=== PATIENT | male | born 1960 | race Caucasian/White ===

== ENCOUNTER 2017-02-07 16:58 | Emergency (ER) | payer OTHER ==
--- NOTE | 2017-02-07 17:17 | PDOC ---
History of Present Illness - General History Source: Patient Exam Limitations: No Limitations - History of Present Illness Initial Comments: 02/07/17 18:36 Patient is a 56 year old male with a significant past medical history of Diabetes, HTN, CHF, Hx chronic heart attacks who was brought by EMS to the ED with complaints of chest pain en route to ED. Patient reports sudden onset of bilateral leg burning that [facility] [employer] [facility] Patient does not rate bilateral leg pain but states he was unable to walk or stand without falling backwards. Patient states experiencing sudden SOB while waiting for EMS at [facility] secondary to bilateral leg pain. Patient reports experiencing chest pain while en route to the ED secondary to bilateral leg pain. He states chest pain is a sharp pressing pain that feels similar to past experiences while having heart attack. He reports going to [facility] 2 weeks ago to change medication from lasix to turismo. Patient reports having fluid build up around knees bilaterally. PAtient reports taking liquid nitro en route to ED which offered slight relief. Denies arm pain, sweating. Denies loss of consciousness, hitting of head. Denies dizziness, headache, lightheadedness. Denies any other symptoms. Allergies: All cough drops. Sulfa Social history: No smoking. Social drinker. No illicit drugs. Surgical history: Open heart surgery, stents x4, Gallbladder PMD: Dr. Pringle [facility] Cardiologists Dr. Kira Armijo Kidney Doctor - Dr. Blum [facility] office Number : [phone] <Anders Linn - Last Filed: 02/07/17 18:36> <Ada Thomas - Last Filed: 02/08/17 00:42> <Rogelio Almaraz - Last Filed: 02/08/17 07:26> - General Chief Complaint: Chest Pain Stated Complaint: CHEST PAIN/DIZZINESS Time Seen by Provider: 02/07/17 17:15 Past History <Anders Linn - Last Filed: 02/07/17 18:36> <Ada Thomas - Last Filed: 02/08/17 00:42> <Rogelio Almaraz - Last Filed: 02/08/17 07:26> - Past Medical History Allergies/Adverse Reactions: Allergies Allergy/AdvReac Type Severity Reaction Status Date / Time brompheniramine Allergy Verified 02/07/17 17:27 [From Tussi Pres-B] brompheniramine maleate Allergy Verified 02/07/17 17:27 [From Tussi Pres-B] chlorpheniramine polistirex Allergy Verified 02/07/17 17:27 [From Tussionex] dextromethorphan Hbr Allergy Verified 02/07/17 17:27 [From Tussi Pres-B] guaifenesin Allergy Verified 02/07/17 17:27 [From Tussi Pres-B] homatropine methylbromide Allergy Verified 02/07/17 17:27 [From Tussigon] hydrocodone bitartrate Allergy Verified 02/07/17 17:27 [From Tussigon] hydrocodone polistirex Allergy Verified 02/07/17 17:27 [From Tussionex] phenylephrine HCl Allergy Verified 02/07/17 17:27 [From Tussi Pres-B] Sulfa (Sulfonamide Allergy Verified 02/07/17 17:27 Antibiotics) sulfacetamide sodium Allergy Verified 02/07/17 17:27 [From Sulfamide] zolpidem tartrate Allergy Verified 02/07/17 17:27 [From Ambien] Home Medications: Ambulatory Orders Unobtainable [Unobtainable] 02/08/17 Review of Systems - Review of Systems Able to Perform ROS?: Yes Comments:: 02/07/17 18:38 GENERAL/CONSTITUTIONAL: No fever or chills. No weakness. HEAD, EYES, EARS, NOSE AND THROAT: No change in vision. No ear pain or discharge. No sore throat. CARDIOVASCULAR: +Chest pain. +SOB. RESPIRATORY: No cough, wheezing, or hemoptysis. GASTROINTESTINAL: No nausea, vomiting, diarrhea or constipation. GENITOURINARY: No dysuria, frequency, or change in urination. MUSCULOSKELETAL: +Bilateral leg pain. No joint or muscle swelling.. No neck or back pain. SKIN: No rash NEUROLOGIC: No headache, vertigo, loss of consciousness, or change in strength/ sensation. ENDOCRINE: No increased thirst. No abnormal weight change. HEMATOLOGIC/LYMPHATIC: No anemia, easy bleeding, or history of blood clots. ALLERGIC/IMMUNOLOGIC: No hives or skin allergy. All Other Systems: Reviewed and Negative <Anders Linn - Last Filed: 02/07/17 18:36> *Physical Exam - Vital Signs Last Vital Signs Temp Pulse Resp BP Pulse Ox 101.3 F H 60 18 122/69 98 02/07/17 16:58 02/07/17 16:58 02/07/17 16:58 02/07/17 16:58 02/07/17 16:58 - Physical Exam Comments: 02/07/17 18:38 GENERAL: Awake, alert, and fully oriented, in no acute distress HEAD: No signs of trauma EYES: PERRLA, EOMI, sclera anicteric, conjunctiva clear ENT: Auricles normal inspection, hearing grossly normal, nares patent, oropharynx clear without exudates. Moist mucosa NECK: Normal ROM, supple, no lymphadenopathy, JVD, or masses LUNGS: Breath sounds equal, clear to auscultation bilaterally. No wheezes, and no crackles HEART: +2/6 systolic murmur left side, at 5th intercostal space parasternally. Regular rate and rhythm, normal S1 and S2, rubs or gallops ABDOMEN: Soft, nontender, normoactive bowel sounds. No guarding, no rebound. No masses EXTREMITIES: +1+ pitting edema. Normal range of motion. No clubbing or cyanosis. No cords, erythema, or tenderness NEUROLOGICAL: Cranial nerves II through XII grossly intact. Normal speech, normal gait SKIN: Warm, Dry, normal turgor, no rashes or lesions noted. <Anders Linn - Last Filed: 02/07/17 18:36> - Vital Signs Last Vital Signs Temp Pulse Resp BP Pulse Ox 100.0 F H 74 22 121/66 100 02/07/17 19:05 02/07/17 19:05 02/07/17 19:05 02/07/17 19:05 02/07/17 19:05 <Ada Thomas - Last Filed: 02/08/17 00:42> Heart Score/ECG Review - ECG Intrepretation Comment:: 02/07/17 17:[address] Almaraz Impression:Atrial-paced rhythm with prolonged AV conduction Possible lateral infarct , age undetermined Abnormal ECG Vent rate bpm : 60bpm <Anders Linn - Last Filed: 02/07/17 18:36> ED Treatment Course - LABORATORY CBC & Chemistry Diagram: 02/07/17 18:25 02/07/17 18:25 - ADDITIONAL ORDERS Additional order review: Laboratory Results 02/07/17 02/07/17 02/07/17 18:25 18:25 18:25 PT with INR INR PTT (Actin FS) 39.3 H D-Dimer 293 H Sodium Potassium Chloride Carbon Dioxide Anion Gap BUN Creatinine Creat Clearance w eGFR Random Glucose Lactic Acid 1.8 Calcium Magnesium Total Bilirubin AST ALT Alkaline Phosphatase Creatine Kinase Troponin I B-Natriuretic Peptide 13761.82 H Total Protein Albumin 02/07/17 02/07/17 18:25 18:25 PT with INR 45.60 H INR 4.03 H* PTT (Actin FS) D-Dimer Sodium 136 Potassium 3.7 Chloride 99 Carbon Dioxide 25 Anion Gap 12 BUN 113 H* Creatinine 5.0 H Creat Clearance w eGFR 11.98 Random Glucose 199 H Lactic Acid Calcium 8.1 L Magnesium 2.5 H Total Bilirubin 0.7 AST 13 L ALT 18 Alkaline Phosphatase 139 H Creatine Kinase 31 L Troponin I 0.24 H B-Natriuretic Peptide Total Protein 6.5 Albumin 2.9 L 02/07/17 18:25 RBC 3.22 L MCV 79.0 L MCHC 31.4 L RDW 19.8 H MPV 7.6 Neutrophils % 86.2 H Lymphocytes % 2.3 L Monocytes % 7.8 Eosinophils % 3.4 Basophils % 0.3 - RADIOLOGY Radiograph Interpretation: 02/08/17 00:37 EXAM#: TYPE/EXAM: RESULT: [id number] RAD/CHEST X-RAY PORTABLE* Chest pain. Rule out infiltrate Portable chest x-ray, AP sitting Since 08/23/2004, the cardiac silhouette is slightly to moderately enlarged allowing for magnification. A left-sided pacer with 2 leads again seen satisfactory position. Post median sternotomy sutures and likely CABG again noted. There are mild bilateral increased interstitial markings with suggestion of mild pulmonary venous congestion. Superimposed infiltrates cannot be ruled out. Mediastinum and visualized osseous structures appear intact Impression: [id number] cardiomegaly and probable mild pulmonary venous congestion. There are also mild bibasal atelectatic changes. Cannot rule out superimposed infiltrates, in particular in the left lung base. Follow-up is needed Reported By: Ad Houstno MD [id number]/08/17 00:42 EXAM#: TYPE/EXAM: RESULT: [id number] US/DUPLEX VASCUL US-2LEGS Bilateral leg pain Bilateral leg Doppler venous ultrasound Grayscale, pulsed Doppler and color Doppler interrogation of both lower extremities deep venous system was performed. The common femoral vein, superficial femoral vein, popliteal and posterior tibial vein were identified, bilaterally with a normal phasic wave form, adequate compressibility and adequate response to augmentation. Visualized portion of the greater saphenous and deep femoral vein are patent No Iqbal's cyst is identified in the popliteal fossa, bilaterally. Impression: There is no evidence of deep venous thromboses in both lower extremities. Reported By: Ad Houston MD 02/07/17 1921 - Medications Given in the ED: ED Medications Discontinued Medications Generic Name Dose Route Start Last Admin Trade Name Freq PRN Reason Stop Dose Admin Acetaminophen 650 mg 02/07/17 20:49 02/07/17 23:07 Tylenol - PO 02/07/17 20:50 650 mg ONCE ONE Administration Aspirin 162 mg 02/07/17 17:46 02/07/17 19:05 Asa - PO 02/07/17 17:47 162 mg ONCE ONE Administration Ceftriaxone Sodium 1 gm/ 50 mls @ 100 mls/hr 02/07/17 19:09 02/07/17 23:07 Dextrose IVPB 02/07/17 19:38 100 mls/hr ONCE ONE Administration Morphine Sulfate 4 mg 02/07/17 17:46 02/07/17 19:05 Morphine Injection - IVPUSH 02/07/17 17:47 4 mg ONCE ONE Administration Ondansetron HCl 4 mg 02/07/17 17:51 02/07/17 19:05 Zofran Injection IVPB 02/07/17 17:52 4 mg ONCE ONE Administration <Ada Thomas - Last Filed: 02/08/17 00:42> - LABORATORY CBC & Chemistry Diagram: 02/07/17 18:25 02/07/17 18:25 <Rogelio Almaraz - Last Filed: 02/08/17 07:26> *DC/Admit/Observation/Transfer - Attestations Scribe Attestion: 02/07/17 18:39 Documentation prepared by Anders Linn, acting as medical records supervisor for Rogelio Almaraz MD/DO. <Steve Linnew - Last Filed: 02/07/17 18:36> <Ada Thomas - Last Filed: 02/08/17 00:42> - Attestations Physician Attestion: 02/07/17 17:17 I, Dr. Rogelio Almaraz, attest that this document has been prepared under my direction and personally reviewed by me in its entirety. I further attest, that it accurately reflects all work, treatment, procedures and medical decision -making performed by me. <Rogelio Almaraz - Last Filed: 02/08/17 07:26> Diagnosis at time of Disposition: Chest pain - Discharge Dispostion Disposition: TRANSFER ACUTE CARE/OTHER HOSP Condition at time of disposition: Stable - Referrals Referrals: Porsche Pringle MD [Primary Care Provider] -
[2017-02-07 17:32] VITALS: BMI 25.1
[2017-02-07] MEDS ORDERED: NITROGLYCERIN SUBLINGUAL 1/150 0.4 MG TAB SL PRN (17:46)
[2017-02-07] MEDS ORDERED: morphine CARPU-JECT 4 MG/1 ML DISP.SYRIN IVPUSH ONE (17:46)
[2017-02-07] MEDS ORDERED: ASPIRIN 81 MG CHEWABLE TABLETS PO ONE (17:46)
[2017-02-07] MEDS ORDERED: ONDANSETRON 4 MG/2 ML VIAL IVPB ONE (17:51)
[2017-02-07] MEDS ORDERED: SODIUM CHLORIDE 1,000 ML IV SCH (18:00)
[2017-02-07] MEDS ORDERED: morphine CARPU-JECT 4 MG/1 ML DISP.SYRIN ONE (18:38)
[2017-02-07] MEDS ORDERED: ASPIRIN 81 MG CHEWABLE TABLETS ONE (18:38)
[2017-02-07] MEDS ORDERED: ONDANSETRON 4 MG/2 ML VIAL ONE (18:38)
[2017-02-07 19:04] LABS: BASOPHIL 0.3 % (0-2.0); EOSINOPHIL 3.4 % (0-4.5); MCH 24.8 pg (25.7-33.7); MCHC 31.4 g/dl (32.0-35.9); MEAN PLT VOLUME 7.6 fl (7.5-11.1); NEUTROPHILS 86.2 % (42.8-82.8); PLATELET COUNT 138 K/MM3 (134-434); RDW 19.8 % (11.9-15.9); WHITE BLOOD COUNT 10.3 K/mm3 (4.0-10.0)
[2017-02-07 19:07] LABS: PROTHROMBIN TIME (PATIENT) 45.6 SEC (9.98-11.88)
[2017-02-07] MEDS ORDERED: CEFTRIAXONE 1 GM in DEXTROSE 5%-WATER - 50 ML IVPB ONE (19:09)
[2017-02-07] MEDS ORDERED: AZITHROMYCIN IVPB 500 MG in DEXTROSE 5%-WATER - 250 ML IVPB ONE (19:09)
[2017-02-07 19:20] LABS: ALBUMIN 2.9 g/dl (3.4-5.0); ANION GAP 12 (8-16); BILIRUBIN,TOTAL 0.7 mg/dL (0.2-1.0); CALCIUM 8.1 mg/dL (8.5-10.1); CO2 25 mmol/L (21-32); GLUCOSE,RANDOM 199 mg/dL (74-106); MAGNESIUM 2.5 mg/dL (1.8-2.4); SGOT/AST 13 U/L (15-37); SGPT/ALT 18 U/L (12-78); TOT PROT 6.5 g/dl (6.4-8.2)
[2017-02-07 19:23] LABS: ALK PHOS 139 U/L (45-117); CPK 31 IU/L (39-308); TROPONIN I 0.24 ng/ml (0.00-0.05)
[2017-02-07 19:33] LABS: INR 4.03 (0.82-1.09)
[2017-02-07 20:27] LABS: ACTIVATED PTT 39.3 SECONDS (26.9-34.4)
[2017-02-07] MEDS ORDERED: ACETAMINOPHEN 325 MG TABLET (FP) PO ONE (20:49)
[2017-02-07] MEDS ORDERED: ACETAMINOPHEN 325 MG TABLET (FP) ONE (22:59)
[2017-02-07] MEDS ORDERED: CEFTRIAXONE 50 ML ONE (23:00)
[2017-02-08] MEDS ORDERED: AZITHROMYCIN IVPB 250 ML IVPB ONE (00:52)
--- NOTE | 2017-02-08 01:48 | PDOC ---
*Physical Exam - Vital Signs Last Vital Signs Temp Pulse Resp BP Pulse Ox 100.0 F H 74 22 121/66 100 02/07/17 19:05 02/07/17 19:05 02/07/17 19:05 02/07/17 19:05 02/07/17 19:05 ED Treatment Course - LABORATORY CBC & Chemistry Diagram: 02/07/17 18:25 02/07/17 18:25 - ADDITIONAL ORDERS Additional order review: Laboratory Results 02/07/17 02/07/17 02/07/17 23:40 18:25 18:25 PT with INR INR PTT (Actin FS) D-Dimer Sodium Potassium Chloride Carbon Dioxide Anion Gap BUN Creatinine Creat Clearance w eGFR Random Glucose Lactic Acid 1.8 Calcium Magnesium Total Bilirubin AST ALT Alkaline Phosphatase Creatine Kinase Troponin I B-Natriuretic Peptide 59929.82 H Total Protein Albumin Blood Type O POSITIVE 02/07/17 02/07/17 02/07/17 18:25 18:25 18:25 PT with INR 45.60 H INR 4.03 H* PTT (Actin FS) 39.3 H D-Dimer 293 H Sodium 136 Potassium 3.7 Chloride 99 Carbon Dioxide 25 Anion Gap 12 BUN 113 H* Creatinine 5.0 H Creat Clearance w eGFR 11.98 Random Glucose 199 H Lactic Acid Calcium 8.1 L Magnesium 2.5 H Total Bilirubin 0.7 AST 13 L ALT 18 Alkaline Phosphatase 139 H Creatine Kinase 31 L Troponin I 0.24 H B-Natriuretic Peptide Total Protein 6.5 Albumin 2.9 L Blood Type 02/07/17 18:25 RBC 3.22 L MCV 79.0 L MCHC 31.4 L RDW 19.8 H MPV 7.6 Neutrophils % 86.2 H Lymphocytes % 2.3 L Monocytes % 7.8 Eosinophils % 3.4 Basophils % 0.3 - Medications Given in the ED: ED Medications Discontinued Medications Generic Name Dose Route Start Last Admin Trade Name Freq PRN Reason Stop Dose Admin Acetaminophen 650 mg 02/07/17 20:49 02/07/17 23:07 Tylenol - PO 02/07/17 20:50 650 mg ONCE ONE Administration Aspirin 162 mg 02/07/17 17:46 02/07/17 19:05 Asa - PO 02/07/17 17:47 162 mg ONCE ONE Administration Ceftriaxone Sodium 1 gm/ 50 mls @ 100 mls/hr 02/07/17 19:09 02/07/17 23:07 Dextrose IVPB 02/07/17 19:38 100 mls/hr ONCE ONE Administration Morphine Sulfate 4 mg 02/07/17 17:46 02/07/17 19:05 Morphine Injection - IVPUSH 02/07/17 17:47 4 mg ONCE ONE Administration Ondansetron HCl 4 mg 02/07/17 17:51 02/07/17 19:05 Zofran Injection IVPB 02/07/17 17:52 4 mg ONCE ONE Administration Medical Decision Making - Medical Decision Making 02/08/17 01:24 Pt signed out to me by Dr. Almaraz. 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 CXR with PNA. Pt also febrile to 101.3. Likely PNA +/- CHF exacerbation. Covered pt with ctx and azithro, pt was also previously given ASA. EKG, normal sinus with normal axis and no KURT. Pt currently with no CP. Pt requesting transfer to [facility] for admission. Spoke with Dr. Francisco Avilez ([facility], covering for Dr. Armijo) and discussed the case. Per Dr. Avilez, BUN/tunnel elastic operator lockstitch at baseline, pt also frequently leaks trop's, [place] [address] Avilez accepts the patient for transfer but reports there are no tele beds and thus we will need to transfer the patient to the ED. Spoke with Dr. Ezequiel Padron from the ED and discussed the case. Dr. Ezequiel Padron aware of transfer to the ED prior to admission to [facility]. Pt has been consented for transfer, [facility] team here to hot die picker the patient. *DC/Admit/Observation/Transfer Diagnosis at time of Disposition: Chest pain - Discharge Dispostion Disposition: TRANSFER ACUTE CARE/OTHER HOSP Condition at time of disposition: Stable - Referrals Referrals: Porsche Pringle MD [Primary Care Provider] - - Patient Instructions - Post Discharge Activity - Transfer to Acute Care Facility Receiving Facility: [facility] - Attestations Physician Attestion: 02/08/17 01:51 I, Dr. Massimo Crain MD, attest that this document has been prepared under my direction and personally reviewed by me in its entirety. I further attest, that it accurately reflects all work, treatment, procedures and medical decision -making performed by me.
[2017-02-08 03:22] VITALS: BP 114/75; PULSE 63; TEMP 99.4
--- NOTE | 2017-02-08 13:33 | EKG ---
Test Reason : Blood Pressure : / mmHG Vent. Rate : 060 BPM Atrial Rate : 060 BPM P-R Int : 240 ms QRS Dur : 122 ms QT Int : 402 ms P-R-T Axes : 047 100 173 degrees QTc Int : 402 ms Atrial-paced rhythm with prolonged AV conduction POSSIBLE LATERAL INFARCT (CITED ON OR BEFORE 23-AUG-2004) ABNORMAL ECG WHEN COMPARED WITH ECG OF 24-AUG-2004 07:30, ELECTRONIC ATRIAL PACEMAKER HAS REPLACED SINUS RHYTHM QUESTIONABLE CHANGE IN INITIAL FORCES OF ANTERIOR LEADS NONSPECIFIC T WAVE ABNORMALITY HAS REPLACED INVERTED T WAVES IN LATERAL LEADS CLINICAL CORRELATION IS RECOMMENDED Confirmed by LIZZ MULLIGAN MD ([id number]) on 02/08/2017 1:33:26 PM Referred By: Confirmed By:LIZZ MULLIGAN MD
== END 2017-02-08 01:45 | disposition short-term general hospital (02) ==
LOC: JER 16:58
PROC: 3E03329 Introduction of Other Anti-infective into Peripheral Vein, Percutaneous Approach (ICD-10-PCS; principal; 2017-02-07)
PROC: 3E033NZ Introduction of Analgesics, Hypnotics, Sedatives into Peripheral Vein, Percutaneous Approach (ICD-10-PCS; 2017-02-07)
PROC: 3E033GC Introduction of Other Therapeutic Substance into Peripheral Vein, Percutaneous Approach (ICD-10-PCS; 2017-02-07)
DX: R07.89 Other chest pain (principal); J18.9 Pneumonia, unspecified organism; I50.9 Heart failure, unspecified; E11.9 Type 2 diabetes mellitus without complications
CPT/HCPCS: 36415; 71010-TC; 80053; 83605; 83735; 83880; 84484; 85025; 85379; 85610; 85730; 86850; 86870; 86900; 86901; 86902; 87040; 93005; 93010; 93970-TC; 96365; 96375; 99285-25

== ENCOUNTER 2017-02-27 19:39 | Emergency (ER) | payer OTHER ==
--- NOTE | 2017-02-27 19:44 | PDOC ---
History of Present Illness - General Stated Complaint: FALL Time Seen by Provider: 02/27/17 19:44 Past History - Past Medical History Allergies/Adverse Reactions: Allergies Allergy/AdvReac Type Severity Reaction Status Date / Time brompheniramine Allergy Verified 02/07/17 17:27 [From Tussi Pres-B] brompheniramine maleate Allergy Verified 02/07/17 17:27 [From Tussi Pres-B] chlorpheniramine polistirex Allergy Verified 02/07/17 17:27 [From Tussionex] dextromethorphan Hbr Allergy Verified 02/07/17 17:27 [From Tussi Pres-B] guaifenesin Allergy Verified 02/07/17 17:27 [From Tussi Pres-B] homatropine methylbromide Allergy Verified 02/07/17 17:27 [From Tussigon] hydrocodone bitartrate Allergy Verified 02/07/17 17:27 [From Tussigon] hydrocodone polistirex Allergy Verified 02/07/17 17:27 [From Tussionex] phenylephrine HCl Allergy Verified 02/07/17 17:27 [From Tussi Pres-B] Sulfa (Sulfonamide Allergy Verified 02/07/17 17:27 Antibiotics) sulfacetamide sodium Allergy Verified 02/07/17 17:27 [From Sulfamide] zolpidem tartrate Allergy Verified 02/07/17 17:27 [From Ambien] Home Medications: Ambulatory Orders Unobtainable [Unobtainable] 02/08/17 Diabetes: Yes Disorders: Yes (kidney failure fistula on right arm not accessed yet) HTN: Yes - Surgical History Cardiac Surgery: Yes (CABG x 5 vessels 2002, pacemaker/defibrillator 2002) - Suicide/Smoking/Psychosocial Hx Smoking History: Never smoked Have you smoked in the past 12 months: No Hx Alcohol Use: No Drug/Substance Use Hx: No Substance Use Type: None
[2017-02-27 19:55] VITALS: BP 165/82; PULSE 70; TEMP 97.7; BMI 28.0
--- NOTE | 2017-02-27 20:14 | PDOC ---
Attending Attestation - Resident Resident Name: Andrew Land - HPI HPI: 02/27/17 20:05 Pt fell at home. He had just returned from the hospital this evening after a 3 week stay at [facility]. Pt was admitted for AV shunt placement 2 weeks ago in his left arm. Pt had a GI bleed in the hospital during that time, and he was taken off the coumadin for that. Pt is currently controlling his AFIB with ASA and plavix. He takes glimipride for his DM. He states that last week he had 4 sessions of dialysis, and that he is due to go to dialysis . Pt will have a CT scan stroke protocol. Pt wants to return to [facility] under his drier operator Suzanne Padron's service. - Physicial Exam PE: 02/28/17 00:07 Pt has bilat pitting edema of his entire legs. Pt has a distended abdomen. Pt has left arm AV fistula. afebrile. Neuro exam reveals weakness in the left leg. Otherwise strength intact.CN 2-12 intact. Reflexes equal throughout. HEENT normal. Pt is A+Ox3 Pt is afebrile. 02/28/17 00:09 Agree with resident's exam otherwise - Medical Decision Making 02/28/17 00:09 Transfer to [facility], where pts PMD and all of his records are.
--- NOTE | 2017-02-27 20:24 | PDOC ---
History of Present Illness - General Chief Complaint: Injury Stated Complaint: FALL Time Seen by Provider: 02/27/17 19:44 History Source: Patient Exam Limitations: No Limitations - History of Present Illness Initial Comments: 02/27/17 20:06 56M with pmh of A-fib, CHF, Mi with 3 stents and ESRD on hemodialysis brought by EMS for fall without LOC 2 hours ago with 1h immobilized on the floor. EMS was called by a neighbor who heard the patient scream. Patient states that he fell because his legs were too weak to support him, he fell backwards and hit his head on the floor, couldn't move at all to get back up. He was discharged today from [facility] after being hospitalized for 3 weeks for Pneumonia, chronic CHF. Patient claims that he had a full meal a breakfast and lunch today. Patient states that his doctors stopped Coumadin at the hospital because of GI bleed last week. Patient was discharged on isosorbide mononitrate, metoprolol, pantoprazole and torsemide, aspirin, clopidogrel, digoxin, glimepiride, meclizine, nitroglycerin , percocet 02/27/17 21:08 02/27/17 21:20 Past History - Past Medical History Allergies/Adverse Reactions: Allergies Allergy/AdvReac Type Severity Reaction Status Date / Time brompheniramine Allergy Verified 02/27/17 19:53 [From Tussi Pres-B] brompheniramine maleate Allergy Verified 02/27/17 19:53 [From Tussi Pres-B] chlorpheniramine polistirex Allergy Verified 02/27/17 19:53 [From Tussionex] dextromethorphan Hbr Allergy Verified 02/27/17 19:53 [From Tussi Pres-B] guaifenesin Allergy Verified 02/27/17 19:53 [From Tussi Pres-B] homatropine methylbromide Allergy Verified 02/27/17 19:53 [From Tussigon] hydrocodone bitartrate Allergy Verified 02/27/17 19:53 [From Tussigon] hydrocodone polistirex Allergy Verified 02/27/17 19:53 [From Tussionex] phenylephrine HCl Allergy Verified 02/27/17 19:53 [From Tussi Pres-B] Sulfa (Sulfonamide Allergy Verified 02/27/17 19:53 Antibiotics) sulfacetamide sodium Allergy Verified 02/27/17 19:53 [From Sulfamide] zolpidem tartrate Allergy Verified 02/27/17 19:53 [From Ambien] Home Medications: Ambulatory Orders Isosorbide Mononitrate [Isosorbide Mononitrate ER] 30 mg PO TID 02/27/17 Metoprolol Succinate [Toprol Xl] 100 mg PO DAILY 02/27/17 Pantoprazole Sodium [Protonix] 40 mg PO DAILY 02/27/17 Torsemide 100 mg PO DAILY 02/27/17 Diabetes: Yes Disorders: Yes (kidney failure fistula on right arm not accessed yet) HTN: Yes - Surgical History Cardiac Surgery: Yes (CABG x 5 vessels 2002, pacemaker/defibrillator 2002) - Suicide/Smoking/Psychosocial Hx Smoking History: Never smoked Have you smoked in the past 12 months: No Information on smoking cessation initiated: No Hx Alcohol Use: No Drug/Substance Use Hx: No Substance Use Type: None Review of Systems - Review of Systems Able to Perform ROS?: Yes Is the patient limited Kuwaiti proficient: No Constitutional: No: Symptoms Reported HEENTM: No: Symptoms Reported Respiratory: No: Symptoms reported Cardiac (ROS): No: Symptoms Reported ABD/GI: No: Symptoms Reported : No: Symptoms Reported Musculoskeletal: Yes: Muscle Weakness *Physical Exam - Vital Signs Last Vital Signs Temp Pulse Resp BP Pulse Ox 97.7 F 70 20 165/82 100 02/27/17 19:53 02/27/17 19:53 02/27/17 19:53 02/27/17 19:53 02/27/17 19:53 - Physical Exam General Appearance: Yes: Nourished, Appropriately Dressed. No: Apparent Distress HEENT: positive: EOMI, MINISTERIO, Normal ENT Inspection Neck: negative: Tender Respiratory/Chest: positive: Crackles. negative: Chest Tender Cardiovascular: positive: Irregularly Irregular Gastrointestinal/Abdominal: positive: Protuberent, Distended Neurologic: positive: Other (left sided weakness in upper and lower Left extremities 4/5) Heart Score/ECG Review - History History: Highly suspicious - Electrocardiogram EKG: Normal - Age Age: 45-65 - Risk Factors Risk Factors Heart Score: Yes Hx Hypertension, Yes Hx Diabetes Based on the list above the patient has:: 1-2 risk factors - ECG Intrepretation Rhythm: Irregularly Irregular ED Treatment Course - LABORATORY CBC & Chemistry Diagram: 02/27/17 20:27 02/27/17 20:27 - RADIOLOGY Radiology Studies Ordered: Category Date Time Status HEAD CT (STROKE) [CT] Stat CT Scan 02/27/17 19:55 Ordered CHEST X-RAY PORTABLE* [RAD] Stat Radiology 02/27/17 19:56 Ordered Medical Decision Making - Medical Decision Making 02/27/17 21:45 56M with pmh of A-fib s/p atrial pacemaker, CHF, Mi with 3 stents and ESRD on hemodialysis brought by EMS for fall without LOC 2 hours ago with 1h immobilized on the floor. TIA vs electrolyte imbalance due to ESRD Head CT negative, CXR negative EKG doesn't show pacing from atrial pacemaker compared to last EKG, although EKG shows p-waves. Cardiac monitoring ordered. Since patient was just discharged from [facility] and is requesting a transfer back. Called Dr. Haim Ling who accepted the transfer at 8:30pm Transfer pending. *DC/Admit/Observation/Transfer Diagnosis at time of Disposition: Fall, Treatment not ordered due to transfer of patient, Pre-syncope, Weakness - Discharge Dispostion Disposition: TRANSFER ACUTE CARE/OTHER HOSP Condition at time of disposition: Stable Admit: No - Referrals Referrals: Porsche rPingle MD [Primary Care Provider] - - Patient Instructions - Transfer to Acute Care Facility Receiving Facility: [facility] Accepting Physician:: Dr. Haim Ling Transfer comment: 02/27/17 22:24
[2017-02-27 20:33] LABS: BASOPHIL 0.2 % (0-2.0); EOSINOPHIL 1.9 % (0-4.5); MCH 26.9 pg (25.7-33.7); MCHC 31.3 g/dl (32.0-35.9); MEAN CELL VOLUME 85.8 fl (80-96); MEAN PLT VOLUME 7.3 fl (7.5-11.1); NEUTROPHILS 86.6 % (42.8-82.8); PLATELET COUNT 128 K/MM3 (134-434); RDW 18.6 % (11.9-15.9); WHITE BLOOD COUNT 10.5 K/mm3 (4.0-10.0)
[2017-02-27 20:42] LABS: INR 1.42 (0.82-1.09); PROTHROMBIN TIME (PATIENT) 16.1 SEC (9.98-11.88)
[2017-02-27 20:45] LABS: ACTIVATED PTT 26.5 SECONDS (26.9-34.4)
[2017-02-27 20:52] LABS: ALBUMIN 2.8 g/dl (3.4-5.0); ANION GAP 12 (8-16); BILIRUBIN,TOTAL 1.3 mg/dL (0.2-1.0); CALCIUM 8.3 mg/dL (8.5-10.1); CO2 30 mmol/L (21-32); CREATININE 3.5 mg/dL (0.7-1.3); GLUCOSE,RANDOM 180 mg/dL (74-106); SGOT/AST 18 U/L (15-37); SGPT/ALT 14 U/L (12-78); TOT PROT 7.2 g/dl (6.4-8.2)
[2017-02-27 20:53] LABS: ALK PHOS 163 U/L (45-117)
[2017-02-27 20:55] LABS: TROPONIN I 0.27 ng/ml (0.00-0.05)
--- NOTE | 2017-03-01 07:12 | EKG ---
Test Reason : Blood Pressure : / mmHG Vent. Rate : 063 BPM Atrial Rate : 063 BPM P-R Int : 188 ms QRS Dur : 122 ms QT Int : 434 ms P-R-T Axes : 059 121 143 degrees QTc Int : 444 ms Atrial-paced rhythm POSSIBLE ANTEROLATERAL INFARCT (CITED ON OR BEFORE 23-AUG-2004) POOR R WAVE PROGRESSION ABNORMAL ECG WHEN COMPARED WITH ECG OF 07-FEB-2017 17:07, NO SIGNIFICANT CHANGE WAS FOUND Confirmed by KAYLEY TAPIA MD ([id number]) on 03/01/2017 7:12:23 AM Referred By: Confirmed By:KAYLEY TAPIA MD
== END 2017-02-27 23:34 | disposition short-term general hospital (02) ==
LOC: JER 19:39
DX: R55 Syncope and collapse (principal); W18.30XA Fall on same level, unspecified, initial encounter; Y93.89 Activity, other specified; Y92.018 Other place in single-family (private) house as the place of occurrence of the external cause; I25.810 Atherosclerosis of coronary artery bypass graft(s) without angina pectoris; I13.2 Hypertensive heart and chronic kidney disease with heart failure and with stage 5 chronic kidney disease, or end stage renal disease; N18.6 End stage renal disease; I50.9 Heart failure, unspecified; Z99.2 Dependence on renal dialysis; Z95.1 Presence of aortocoronary bypass graft; Z95.5 Presence of coronary angioplasty implant and graft; E11.9 Type 2 diabetes mellitus without complications; I48.91 Unspecified atrial fibrillation; Z79.01 Long term (current) use of anticoagulants; Z79.82 Long term (current) use of aspirin
CPT/HCPCS: 36415; 70450-TC; 71010-TC; 80053; 82550; 84484; 85025; 85610; 85730; 93005; 93010; 99284-25

== ENCOUNTER 2017-06-13 16:50 | Emergency (ER) | payer OTHER ==
[2017-06-13] MEDS ORDERED: ACETAMINOPHEN 325 MG TABLET (FP) PO ONE (17:25)
[2017-06-13 17:30] VITALS: BMI 23.8
[2017-06-13] MEDS ORDERED: ACETAMINOPHEN 325 MG TABLET (FP) ONE (17:48)
--- NOTE | 2017-06-13 17:59 | PDOC ---
History of Present Illness - General Chief Complaint: Cold Symptoms Stated Complaint: CHEST PAIN Time Seen by Provider: 06/13/17 17:07 History Source: Patient Exam Limitations: No Limitations - History of Present Illness Initial Comments: 06/13/17 17:57 The patient is a 56M with a PMH of DM, HTN, CHF, multiple IN's, who presents to the ER with flu-like symptoms. The patient states that he was discharged from [facility] for v-tach not controlled by his AICD defibrillator and while he was in the hospital, the patient next to him had flu-like symptoms but refused treatment or testing. He states that he has had flu-like symptoms since Tuesday including cough, sore throat, fevers/chills, and diffuse myalgias. He denies any CP, SOB, nausea, vomiting, diarrhea, constipation. Past History - Past Medical History Allergies/Adverse Reactions: Allergies Allergy/AdvReac Type Severity Reaction Status Date / Time atorvastatin Allergy Verified 06/13/17 17:25 brompheniramine Allergy Verified 02/27/17 19:53 [From Tussi Pres-B] brompheniramine maleate Allergy Verified 02/27/17 19:53 [From Tussi Pres-B] chlorpheniramine polistirex Allergy Verified 02/27/17 19:53 [From Tussionex] dextromethorphan Hbr Allergy Verified 02/27/17 19:53 [From Tussi Pres-B] guaifenesin Allergy Verified 02/27/17 19:53 [From Tussi Pres-B] homatropine methylbromide Allergy Verified 02/27/17 19:53 [From Tussigon] hydrocodone bitartrate Allergy Verified 02/27/17 19:53 [From Tussigon] hydrocodone polistirex Allergy Verified 02/27/17 19:53 [From Tussionex] phenylephrine HCl Allergy Verified 02/27/17 19:53 [From Tussi Pres-B] Sulfa (Sulfonamide Allergy Verified 02/27/17 19:53 Antibiotics) sulfacetamide sodium Allergy Verified 02/27/17 19:53 [From Sulfamide] zolpidem tartrate Allergy Verified 02/27/17 19:53 [From Ambien] Home Medications: Ambulatory Orders Isosorbide Mononitrate [Isosorbide Mononitrate ER] 30 mg PO TID 02/27/17 Metoprolol Succinate [Toprol Xl] 100 mg PO DAILY 02/27/17 Pantoprazole Sodium [Protonix] 40 mg PO DAILY 02/27/17 Torsemide 100 mg PO DAILY 02/27/17 Diabetes: Yes Disorders: Yes (kidney failure fistula on right arm not accessed yet) HTN: Yes - Surgical History Cardiac Surgery: Yes (CABG x 5 vessels 2002, pacemaker/defibrillator 2002) - Suicide/Smoking/Psychosocial Hx Smoking History: Never smoked Have you smoked in the past 12 months: No Information on smoking cessation initiated: No Hx Alcohol Use: No Drug/Substance Use Hx: No Substance Use Type: None Review of Systems - Review of Systems Able to Perform ROS?: Yes Comments:: 06/13/17 18:03 GENERAL/CONSTITUTIONAL: Positive for fevers and chills. No weakness. HEAD, EYES, EARS, NOSE AND THROAT: Positive for sore throat. No change in vision. No ear pain or discharge. CARDIOVASCULAR: No chest pain, palpitations, or lightheadedness. RESPIRATORY: Positive for cough. No wheezing, shortness of breath, or hemoptysis. GASTROINTESTINAL: No nausea, vomiting, diarrhea, constipation, or abdominal pain. GENITOURINARY: No dysuria, frequency, hematuria, or change in urination. MUSCULOSKELETAL: Positive for myalgias. No neck or back pain. SKIN: No rash or lesions. NEUROLOGIC: No headache, numbness, tingling, weakness, loss of consciousness, or change in strength/sensation. ENDOCRINE: No increased thirst. No abnormal weight change. HEMATOLOGIC/LYMPHATIC: No anemia, easy bleeding, or history of blood clots. ALLERGIC/IMMUNOLOGIC: No hives or skin allergy. Is the patient limited Cypriot proficient: No *Physical Exam - Vital Signs Last Vital Signs Temp Pulse Resp BP Pulse Ox 99.5 F 90 20 117/75 97 06/13/17 17:27 06/13/17 17:27 06/13/17 17:27 06/13/17 17:27 06/13/17 17:27 - Physical Exam Comments: 06/13/17 18:04 GENERAL: Well developed, well nourished. Awake and alert. No acute distress. HEENT: Normocephalic, atraumatic. Hearing grossly normal. Moist mucous membranes. PERRLA, EOMI. No conjunctival pallor. Sclera are non-icteric. NECK: Supple. Full ROM. No JVD. CARDIOVASCULAR: Regular rate and rhythm. No murmurs, rubs, or gallops. PULMONARY: No evidence of respiratory distress. Diffuse rhonchi in all lung cox. ABDOMINAL: Soft. Non-tender. Non-distended. No rebound or guarding. GENITOURINARY: No CVA tenderness bilaterally. MUSCULOSKELETAL: Normal range of motion at all joints. No bony deformities or tenderness. EXTREMITIES: No cyanosis. No clubbing. No edema. No calf tenderness. SKIN: Warm and dry. Normal capillary refill. No rashes. No jaundice. NEUROLOGICAL: Alert, awake, appropriate. Cranial nerves 2-12 intact. Normal speech. Gait is normal without ataxia. PSYCHIATRIC: Cooperative. Good eye contact. Appropriate mood and affect. Heart Score/ECG Review #1 General ECG Interpretation: Sinus Rhythm, Normal Rate, Normal Intervals, No acute ischemic changes Compared to previous ECG there are: Changes noted (Yovana noted, new from ) 06/13/17 18:09 Atrial paced A flutter pattern appreciated in lead II RBBB morphology Rate 90 QRS 120 QTc 462 ED Treatment Course - LABORATORY CBC & Chemistry Diagram: 06/13/17 17:43 06/13/17 17:43 - RADIOLOGY Radiology Studies Ordered: Category Date Time Status CHEST X-RAY PORTABLE* [RAD] Stat Radiology 06/13/17 17:21 Ordered - Medications Given in the ED: ED Medications Discontinued Medications Generic Name Dose Route Start Last Admin Trade Name Freq PRN Reason Stop Dose Admin Acetaminophen 650 mg 06/13/17 17:25 06/13/17 17:50 Tylenol - PO 06/13/17 17:26 650 mg ONCE ONE Administration Medical Decision Making - Medical Decision Making 06/13/17 18:10 The patient is a 56M with an extensive cardiac hx who presents with 4 days of flu-like sx. Will treat flu-like symptoms with tylenol as patient is outside of the Tamiflu window. Will send flu swab and check cardiac labs. Pt is a dialysis pt TTS, will go to dialysis tomorrow and did go on Tuesday. 06/13/17 21:28 Labs significant for Trop of 0.97. Per patient, his trops normally around 0.1. Dr. Armijo is his sample steamer and has been paged. 06/13/17 21:30 I have spoken to Dr. Ling who is not concerned with this patient's troponin 's. Will d/c pt home with PCP f/u. *DC/Admit/Observation/Transfer Diagnosis at time of Disposition: Influenza-like symptoms - Discharge Dispostion Disposition: HOME Condition at time of disposition: Stable Admit: No - Referrals Referrals: Porsche Pringle MD [Primary Care Provider] - - Patient Instructions Printed Discharge Instructions: How to Avoid a Cold or Flu, Influenza Additional Instructions: Please return to the ER if symptoms persist, worsen, or new symptoms arise. Please follow up with your primary care physician in 2-3 days. Please return to the ER if you have any signs or symptoms of chest pain, shortness of breath, uncontrollable fever, chills, nausea, vomiting, numbness, tingling, or weakness in any part of your body, changes in vision, or slurred speech. - Post Discharge Activity
[2017-06-13 18:10] LABS: BASO % 0.5 % (0-2.0); HEMATOCRIT 30.2 % (35.4-49); HEMOGLOBIN 9.8 GM/dL (11.7-16.9); LYMPH % 4.5 % (8-40); MCH 28.2 pg (25.7-33.7); MCHC 32.5 g/dl (32.0-35.9); MEAN CELL VOLUME 86.7 fl (80-96); MEAN PLT VOLUME 7.4 fl (7.5-11.1); MONO % 9.7 % (3.8-10.2); NEUT % 80.3 % (42.8-82.8); PLATELET COUNT 123 K/MM3 (134-434); RBC 3.48 M/mm3 (4.00-5.60); RDW 18.9 % (11.9-15.9); WHITE BLOOD COUNT 6.8 K/mm3 (4.0-10.0)
[2017-06-13] MEDS ORDERED: BENZOCAINE/MENTH/CETYLPYRD CL 1 EACH LOZENGE MM PRN (18:30)
[2017-06-13 18:39] LABS: ANION GAP 12 (8-16); BLOOD UREA NITROGEN 59 mg/dL (7-18); CHLORIDE 96 mmol/L (98-107); CO2 26 mmol/L (21-32); GLUCOSE,RANDOM 123 mg/dL (74-106); SGPT/ALT 19 U/L (12-78); SODIUM 134 mmol/L (136-145)
[2017-06-13 18:56] LABS: ALK PHOS 146 U/L (45-117); BILIRUBIN,TOTAL 0.8 mg/dL (0.2-1.0); TOT PROT 7.4 g/dl (6.4-8.2)
[2017-06-13 19:05] LABS: POTASSIUM 4.8 mmol/L (3.5-5.1); SGOT/AST 29 U/L (15-37)
[2017-06-13 19:07] LABS: CREATININE 7.5 mg/dL (0.7-1.3)
[2017-06-13 21:46] VITALS: BP 120/72; PULSE 79; TEMP 98.1
--- NOTE | 2017-06-14 14:03 | EKG ---
Test Reason : Blood Pressure : / mmHG Vent. Rate : 090 BPM Atrial Rate : 090 BPM P-R Int : 162 ms QRS Dur : 120 ms QT Int : 378 ms P-R-T Axes : 092 -27 201 degrees QTc Int : 462 ms ATRIAL FLUTTER Atrial-paced rhythm IN A PATTERN OF BIGEMINY INDETERMINATE AXIS ANTEROLATERAL INFARCT (CITED ON OR BEFORE 23-AUG-2004) ABNORMAL ECG WHEN COMPARED WITH ECG OF 27-FEB-2017 20:44, ELECTRONIC ATRIAL PACEMAKER HAS REPLACED SINUS RHYTHM QRS AXIS SHIFTED LEFT INVERTED T WAVES HAVE REPLACED NONSPECIFIC T WAVE ABNORMALITY IN INFERIOR LEADS Confirmed by MD LUIS, ALEX ([id number]) on 06/14/2017 2:03:32 PM Referred By: Confirmed By:ALEX SMITH MD
== END 2017-06-13 21:46 | disposition home or self-care (01) ==
LOC: JER 16:50
DX: J09.X2 Influenza due to identified novel influenza A virus with other respiratory manifestations (principal); I25.10 Atherosclerotic heart disease of native coronary artery without angina pectoris; I10 Essential (primary) hypertension; Z95.1 Presence of aortocoronary bypass graft; Z95.810 Presence of automatic (implantable) cardiac defibrillator; I25.2 Old myocardial infarction
CPT/HCPCS: 36415; 71045-TC; 80053; 82550; 84484; 85025; 87804; 93005; 93010; 99282-25

== ENCOUNTER 2017-11-05 16:41 | Observation (INO) | payer OTHER ==
[2017-11-05 16:51] VITALS: BMI 24.5
--- NOTE | 2017-11-05 16:52 | PDOC ---
History of Present Illness - General History Source: Patient Exam Limitations: No Limitations <Terri Paul - Last Filed: 11/05/17 20:37> <Morteza Cabrera - Last Filed: 11/05/17 21:12> - General Chief Complaint: Chest Pain Stated Complaint: CHEST PAIN Time Seen by Provider: 11/05/17 16:52 - History of Present Illness Initial Comments: 11/05/17 18:39 The patient is a 57-year-old male with past medical history of HTN, Type II DM, CHF, Afib, CAD, ESRD on hemodialysis (T, TH, and Sat), L. arm fistula and severe ischemic heart disorder presents to the emergency department with chest pain. The patient reports diffused pain to the anterior chest wall that began at 4:30 am today. The patient states the pain felt like, someone is sitting on my chest, reports the use of sublingual nitroglycerin spray, with relief noted. The patient reports he was at dialysis this afternoon, when the pain recurred, accompanied with 88/58 blood pressure, was unable to complete his complete his dialysis. The patient states the aim was 4.5 liter, and he was only able to complete 4 liters of blood. The patient states since the afternoon to the ED, hes been experiencing intermittent chest pain, with mild relief with nitroglycerin. The patient states since afternoon he has had three nitroglycerin in total, with the last dose were at 3:30 pm. The patient states at the ED the pain is 4/10 in severity. The patient reports a prior history of mild angina and Tuesday, with relief noted after the use of nitroglycerin. The patient reports a similar incident in the past, reports taking three nitroglycerin, was admitted to [facility] at 10/21/2017, was monitored then discharged. 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 The patient reports the use of Eliquis (2.5) and Plavix (75), states his PCP has lowered the dose the eliquis s/p bleeding from the fistula. The patient reports chronic abdominal swelling, details the last tap was months ago. Denies history of cirrhosis, Hep B or C. Denies fever, chills, cough or a headache. Denies shortness of breath. Denies abdominal pain. Denies dysuria, hematuria, frequency or urgency to urinate. Denies vertigo. Denies numbness, tingling or loss of sensation Allergies: All cough drops. Atorvastatin, zolpidem tartrate, sulfacetamide sodium and Sulfa Social history: No smoking. Social drinker. No illicit drugs. Surgical history: stents x4, Cholecystectomy, pacemaker/defibrillator 2002, CABG x5 v and LV remodeling 01/16, Bypass (2003 @[facility]). PMD: Dr. Pringle [facility] Cardiologists Dr. Kira Armijo Kidney Doctor - Dr. Blum GI: Dr. murrell. (Terri Paul) Past History <Terri Paul - Last Filed: 11/05/17 20:37> - Past Medical History COPD: No Diabetes: Yes Disorders: Yes (T,T,SAT fistula on lt arm) HTN: Yes Thyroid Disease: Yes - Surgical History Cardiac Surgery: Yes (CABG x 5 vessels 2002, pacemaker/defibrillator 2002) - Suicide/Smoking/Psychosocial Hx Smoking History: Never smoked Have you smoked in the past 12 months: No Information on smoking cessation initiated: No Hx Alcohol Use: No Drug/Substance Use Hx: No Substance Use Type: None <Morteza Cabrera - Last Filed: 11/05/17 21:12> - Past Medical History Allergies/Adverse Reactions: Allergies Allergy/AdvReac Type Severity Reaction Status Date / Time atorvastatin Allergy Verified 11/05/17 16:54 brompheniramine Allergy Verified 11/05/17 16:54 [From Tussi Pres-B] brompheniramine maleate Allergy Verified 11/05/17 16:54 [From Tussi Pres-B] chlorpheniramine polistirex Allergy Verified 11/05/17 16:54 [From Tussionex] dextromethorphan Hbr Allergy Verified 11/05/17 16:54 [From Tussi Pres-B] guaifenesin Allergy Verified 11/05/17 16:54 [From Tussi Pres-B] homatropine methylbromide Allergy Verified 11/05/17 16:54 [From Tussigon] hydrocodone bitartrate Allergy Verified 11/05/17 16:54 [From Tussigon] hydrocodone polistirex Allergy Verified 11/05/17 16:54 [From Tussionex] phenylephrine HCl Allergy Verified 11/05/17 16:54 [From Tussi Pres-B] Sulfa (Sulfonamide Allergy Verified 11/05/17 16:54 Antibiotics) sulfacetamide sodium Allergy Verified 11/05/17 16:54 [From Sulfamide] zolpidem tartrate Allergy Verified 11/05/17 16:54 [From Ambien] Home Medications: Ambulatory Orders Pantoprazole Sodium [Protonix] 40 mg PO DAILY 02/27/17 Amiodarone HCl 0 mg PO DAILY 11/05/17 Apixaban [Eliquis] 2.5 mg PO BID 11/05/17 Clopidogrel Bisulfate [Plavix] 75 mg PO DAILY 11/05/17 Isosorbide Mononitrate [Imdur -] 120 mg PO DAILY 11/05/17 Levothyroxine Sodium [Synthroid] 0 mcg PO DAILY 11/05/17 Review of Systems - Review of Systems Able to Perform ROS?: Yes <Terri Paul - Last Filed: 11/05/17 20:37> <Morteza Cabrera - Last Filed: 11/05/17 21:12> - Review of Systems Comments:: 11/05/17 18:39 CONSTITUTIONAL: No fever, no chills, no fatigue EYES: No visual changes ENT: No ear pain, no sore throat CARDIOVASCULAR: (+) chest pain, no palpitations RESPIRATORY: No cough, no SOB GI: No abdominal pain, no nausea, no vomiting, no constipation, no diarrhea GENITOURINARY: No dysuria, no frequency, no hematuria MUSKULOSKELETAL: No backpain, no joint pain, no myalgias SKIN: No rash NEURO: No headache (Terri Paul) *Physical Exam <Terri Paul - Last Filed: 11/05/17 20:37> <Morteza Cabrera - Last Filed: 11/05/17 21:12> - Vital Signs Last Vital Signs Temp Pulse Resp BP Pulse Ox 98.7 F 60 18 140/79 100 11/05/17 19:46 11/05/17 19:46 11/05/17 19:46 11/05/17 19:46 11/05/17 19:46 - Physical Exam Comments: 11/05/17 19:25 EXAMINATION CONSTITUTIONAL: Patient is awake and alert, frail-appearing, but alert and awake ; in no apparent distress HEAD: Normocephalic; atraumatic EYES: PERRL; EOM intact, conj-pale ENMT: External appears normal; normal oropharynx NECK: Supple; +jvd CARD: Normal S1, S2; 2/6 se murmur, no rubs, or gallops RESP: Normal chest excursion with respiration; + mild bilateral crackles ABD: Soft, distended; + fluid wave; non-tender; no palpable organomegaly, no palpable hernias EXT: Normal ROM in all four extremities; non-tender to palpation; + AV fistula to LUE with thrill; distal pulses intact SKIN: Warm, dry, no rash NEURO: No focal neurological deficiencies. (Morteza Cabrera) Heart Score/ECG Review - History History: Highly suspicious - Electrocardiogram EKG: Non specific repolarization disturbance - Age Age: 45-65 - Risk Factors Risk Factors Heart Score: Yes Hx Hypercholesterolemia, Yes Hx Hypertension Based on the list above the patient has:: >/=3 risk factors or Hx atherosclerotic disease - Troponin Troponin: 1-3x normal limit - Score Heart Score - Total: 7 <Morteza Cabrera - Last Filed: 11/05/17 21:12> ED Treatment Course - LABORATORY CBC & Chemistry Diagram: 11/05/17 17:40 11/05/17 18:10 <Terri Paul - Last Filed: 11/05/17 20:37> - LABORATORY CBC & Chemistry Diagram: 11/05/17 17:40 11/05/17 18:10 <Morteza Cabrera - Last Filed: 11/05/17 21:12> - ADDITIONAL ORDERS Additional order review: Laboratory Results 11/05/17 11/05/17 11/05/17 18:10 17:40 17:40 PT with INR INR Sodium 133 L Cancelled Potassium 4.9 Cancelled Chloride 98 Cancelled Carbon Dioxide 23 Cancelled Anion Gap 12 Cancelled BUN 57 H Cancelled Creatinine 6.9 H Cancelled Creat Clearance w eGFR 8.23 Cancelled Random Glucose 158 H D Cancelled Calcium 8.0 L Cancelled Total Bilirubin 0.7 Cancelled AST 22 D Cancelled ALT 31 D Cancelled Alkaline Phosphatase 214 H Cancelled Creatine Kinase 38 L Cancelled Troponin I 0.26 H D Cancelled Total Protein 7.5 Cancelled Albumin 2.9 L Cancelled Blood Type O POSITIVE Antibody Screen Positive H Antibody Identification Anti-c Antigen Identification c Antigen - NEGATIVE 11/05/17 17:40 PT with INR 16.80 H INR 1.49 H Sodium Potassium Chloride Carbon Dioxide Anion Gap BUN Creatinine Creat Clearance w eGFR Random Glucose Calcium Total Bilirubin AST ALT Alkaline Phosphatase Creatine Kinase Troponin I Total Protein Albumin Blood Type Antibody Screen Antibody Identification Antigen Identification 11/05/17 17:40 RBC 3.08 L MCV 86.6 MCHC 32.2 RDW 20.6 H MPV 6.1 L D Neutrophils % 83.1 H Lymphocytes % 3.5 L D Monocytes % 8.9 Eosinophils % 3.6 Basophils % 0.9 - RADIOLOGY Radiology Studies Ordered: Category Date Time Status CHEST X-RAY PORTABLE* [RAD] Stat Radiology 11/05/17 17:20 Completed - Medications Given in the ED: ED Medications Discontinued Medications Generic Name Dose Route Start Last Admin Trade Name Freq PRN Reason Stop Dose Admin Nitroglycerin 1 inch 11/05/17 17:21 11/05/17 17:43 Nitro-Bid 2% Paste - TD 11/05/17 17:22 1 inch ONCE ONE Administration Medical Decision Making <Terri Paul - Last Filed: 11/05/17 20:37> <Morteza Cabrera - Last Filed: 11/05/17 21:12> - Medical Decision Making 11/05/17 20:[address] Armijo at 6:44 pm Call placed to Dr. Armijo at 7:18 pm Call placed to Dr. Armijo at 7:26 pm Call placed to Dr. Armijo at 8:08 pm Unable to reach Dr. Armijo. The phone call keep saying, circuits are busy, try again later. (Terri Paul) 11/05/17 20:22 57-year-old male with multiple comorbidities presents to the ER with recurrent anginal pain at rest on the day of arrival requiring treatment with sublingual nitroglycerin. In the ER, patient is awake and alert, well-appearing, in no distress. Serial EKGs showed no evidence of acute ischemia. Abnormal access and diffuse T-wave abnormalities in noted which are unchanged from previous. Chest x -ray reveals cardiomegaly and pulmonary vascular congestion. First set of cardiac enzymes reveals a normal CPK and an indeterminate troponin. Patient will require placement in observation for serial cardiac enzymes and cardiac consultation. Patient's taking Plavix and eloquent was prior to arrival. ( Morteza Cabrera) *DC/Admit/Observation/Transfer <Terri Paul - Last Filed: 11/05/17 20:37> <Morteza Cabrera - Last Filed: 11/05/17 21:12> Diagnosis at time of Disposition: Acute coronary syndrome, End stage renal disease - Discharge Dispostion Condition at time of disposition: Fair Decision to Admit order Date/Time: Decision to Admit Order Category Date Time Status Decision to Admit to Hospital Routine Admission 11/05/17 20:24 Active - Referrals Referrals: Porsche Pringle MD [Primary Care Provider] - - Patient Instructions - Post Discharge Activity - Attestations Scribe Attestion: 11/05/17 18:39 Documentation prepared by Terri Paul, acting as certified medical transcriptionist for Morteza Cabrera MD. (Terri Paul) Physician Attestion: 11/05/17 19:24 The documentation was prepared by the scribe under my direct supervision. I have reviewed the documentation which correctly represents the findings, medical decision-making and critical action taken by me. (Morteza Cabrera)
[2017-11-05] MEDS ORDERED: NITROGLYCERIN 2% OINTMENT - 1GM PACKET TD ONE ×2 (17:21→17:37)
[2017-11-05 17:47] LABS: BASO % 0.9 % (0-2.0); EOS % 3.6 % (0-4.5); HEMATOCRIT 26.7 % (35.4-49); HEMOGLOBIN 8.6 GM/dL (11.7-16.9); LYMPH % 3.5 % (8-40); MCH 27.9 pg (25.7-33.7); MCHC 32.2 g/dl (32.0-35.9); MEAN CELL VOLUME 86.6 fl (80-96); MEAN PLT VOLUME 6.1 fl (7.5-11.1); MONO % 8.9 % (3.8-10.2); NEUT % 83.1 % (42.8-82.8); PLATELET COUNT 139 K/MM3 (134-434); RBC 3.08 M/mm3 (4.00-5.60); RDW 20.6 % (11.9-15.9); WHITE BLOOD COUNT 8.2 K/mm3 (4.0-10.0)
[2017-11-05 17:50] LABS: ADD RBC MORPHOLOGY YES
[2017-11-05 18:23] LABS: INR 1.49 (0.82-1.09); PROTHROMBIN TIME (PATIENT) 16.8 SEC (9.7-13.0)
[2017-11-05 18:44] LABS: ALBUMIN 2.9 g/dl (3.4-5.0); ANION GAP 12 (8-16); BILIRUBIN,TOTAL 0.7 mg/dL (0.2-1.0); BLOOD UREA NITROGEN 57 mg/dL (7-18); CHLORIDE 98 mmol/L (98-107); CO2 23 mmol/L (21-32); CREATININE 6.9 mg/dL (0.7-1.3); GLUCOSE,RANDOM 158 mg/dL (74-106); POTASSIUM 4.9 mmol/L (3.5-5.1); SGOT/AST 22 U/L (15-37); SGPT/ALT 31 U/L (12-78); SODIUM 133 mmol/L (136-145); TOT PROT 7.5 g/dl (6.4-8.2)
[2017-11-05 18:46] LABS: ALK PHOS 214 U/L (45-117)
[2017-11-05 19:33] LABS: ANISOCYTOSIS 2+; MACROCYTOSIS 1+; OVALOCYTE 1+; PLATELET ESTIMATE ADEQUATE
--- NOTE | 2017-11-05 20:40 | PN ---
Teaching Attending Note Name of Resident: Fay Bergeron ATTENDING PHYSICIAN STATEMENT I saw and evaluated the patient. I reviewed the resident's note and discussed the case with the resident. I agree with the resident's findings and plan as documented. SUBJECTIVE: Patient is a 57 year old man with past medical history of HTN, Type II DM, CHF, Afib (On Eliquis), CAD, GI bleeding, Ascites and ESRD on hemodialysis (T, TH, and Sat) who presents to the ER with chest pain that initially began early this morning. He says the pain felt like, someone is sitting on my chest, reports the use of sublingual nitroglycerin spray, with relief noted. The patient reports he was at hemodialysis this afternoon, when the pain recurred, accompanied with 88/58 blood pressure, and he was unable to complete his hemodialysis treatment. Has had 4 cardiac stents, Cholecystectomy, pacemaker/ defibrillator 2002, and CABG. OBJECTIVE: Alert and in no distress Vital Signs Period Temp Pulse Resp BP Sys/Robert Pulse Ox Last 24 Hr 97.8 F-98.7 F 60-60 18-18 140-150/74-79 100-100 HEENT: Tinge of jaundice and pallor; No eye redness or discharge, PERRLA, EOMI. Normocephalic, atraumatic. External ears are normal and hearing is grossly intact. No nasal discharge. Neck: Supple, nontender. No palpable adenopathy or thyromegaly. No JVD Chest: Good effort. Clear to auscultation and percussion. Heart: Regular. No S3, rub or murmur Abdomen: Distended with ascites, soft, nontender and no HSM. No rebound or guarding. Normoactive bowel sounds. Ext: Peripheral pulses intact. No leg edema. Left arm AV fistula. Skin: Warm and dry. No petechiae, rash or ecchymosis. Neuro: Alert. Oriented x3. CN 2-12 grossly intact. Sensation grossly intact in all four extremities and DTR are symmetric. Current Medications Generic Name Dose Route Start Last Admin Trade Name Freq PRN Reason Stop Dose Admin Amiodarone HCl 100 mg 11/06/17 10:00 Cordarone - PO DAILY [facility] Apixaban 2.5 mg 11/05/17 22:00 Eliquis - PO BID [facility] Clopidogrel Bisulfate 75 mg 11/06/17 10:00 Plavix - PO DAILY [facility] Isosorbide Mononitrate 120 mg 11/06/17 10:00 Imdur - PO DAILY [facility] Levothyroxine Sodium 88 mcg 11/06/17 07:00 Synthroid - PO DAILY@0700 [facility] Metoprolol Tartrate 25 mg 11/05/17 22:00 Lopressor - PO BID [facility] Pantoprazole Sodium 40 mg 11/06/17 10:00 Protonix - PO DAILY [facility] Home Medications Medication Instructions Recorded Pantoprazole Sodium [Protonix] 40 mg PO DAILY 02/27/17 Amiodarone HCl 0 mg PO DAILY 11/05/17 Apixaban [Eliquis] 2.5 mg PO BID 11/05/17 Clopidogrel Bisulfate [Plavix] 75 mg PO DAILY 11/05/17 Isosorbide Mononitrate [Imdur -] 120 mg PO DAILY 11/05/17 Levothyroxine Sodium [Synthroid] 0 mcg PO DAILY 11/05/17 Metoprolol Tartrate 25 mg PO BID 11/05/17 Abnormal Lab Results 11/05/17 11/05/17 11/05/17 17:40 17:40 17:40 RBC 3.08 L Hgb 8.6 L Hct 26.7 L RDW 20.6 H MPV 6.1 L D Neutrophils % 83.1 H Lymphocytes % 3.5 L D PT with INR 16.80 H INR 1.49 H Sodium BUN Creatinine Random Glucose Calcium Alkaline Phosphatase Creatine Kinase Troponin I Albumin Antibody Screen Positive H 11/05/17 18:10 RBC Hgb Hct RDW MPV Neutrophils % Lymphocytes % PT with INR INR Sodium 133 L BUN 57 H Creatinine 6.9 H Random Glucose 158 H D Calcium 8.0 L Alkaline Phosphatase 214 H Creatine Kinase 38 L Troponin I 0.26 H D Albumin 2.9 L Antibody Screen ASSESSMENT AND PLAN: 1. Chest pain - Troponin is elevated but no significant new changes on EKG. Will admit to telemetry, get follow up EKGs, ECHO and trend troponin. Now pain free. Cardiology consulted by ER staff, and no active intervention recommended. Even if this a NSTEMI, patient is already on anticoagulation - Eliquis. CXR does not show any acute changes. He has cardiomegaly, pacemaker, elevated right hemodiaphragm and hilar fullness. 2. ESRD - Continue thrice weekly hemodialysis. Consult nephrology. 3. AFIB - Rate controlled. EKG shows atrial paced rhythm. On Eliquis - will discuss the propriety of Eliquis in an ESRD patient with his PCP and building energy consultant. 4. Low Albumin - Ensure adequate dietary protein intake - at least 1.5 g/KG body weight daily. 5. Anemia - Likely mainly due to ESRD, but will rule out GI loss and ensure adequate iron stores to maximize response to Procrit. 6. Ascites - Etiology unclear. Says he is going to [facility] for workup and has had therapeutic paracentesis twice. Thus will not initiate workup here to avoid duplication. 7. DVT prophylaxis - On Eliquis 8. Advance directives - Full code
--- NOTE | 2017-11-05 21:40 | HP ---
CHIEF COMPLAINT: " Shortness of breath and chest pressure" PCP: Dr. Pringle Crystal Calibrator: Dr. Armijo Kidney Doctor - Dr. Blum GI: Dr. murrell. HISTORY OF PRESENT ILLNESS: The patient is a 57-year-old male presented to the emergency department with the chief complaint of " Shortness of breath and chest pressure". As per the patient, he woke up at 4:30 am this morning, not feeling well then started having chest pressure like symptoms associated with shortness of breath at rest. He took Nitro which gave him prompt symptomatic relief. Then he went for the HD today. During the dialysis his BP was 88/58 mmHg and it was stopped after 3.5 hrs, normally he gets 4 hrs 45 mins of HD. After coming back home, he had the same symptoms of chest pressure, describes as an Elephant sitting on his chest, non radiating, no palpitations. After using the Nitro three times with slight relief only, he came in to the ED for further evaluation. Denies headache, numbness, tingling, fever, chills, rigors, sweating, syncope. Bowel habit normal. Has minimal urine production. Sleep/Appetite normal. Patient also reports to have AICD placed twice, last interogated in July, after it got fired multiple times. ER course was notable for: (1) Afebrile, Hyponatremic 133; H/H 8.6/26.7; Troponin 0.26 (2) EKG: no evidence of acute ischemia. Abnormal access and diffuse T-wave abnormalities in noted which are unchanged from previous. (3) Nitropaste Recent Travel: None PAST MEDICAL HISTORY: HTN, Type II DM, CHF, Afib, CAD, ESRD on hemodialysis (T , TH, and Sat), L. arm fistula and severe ischemic heart disorder PAST SURGICAL HISTORY: stents x4, Cholecystectomy, pacemaker/defibrillator 2002 , CABG x5 v and LV remodeling 01/16, Bypass (2002 @[facility]). Social History: Smoking: Denies Alcohol: Occasional, last drink August, Drugs: Denies Family History: Non contributory Allergies atorvastatin Allergy (Verified 11/05/17 16:54) brompheniramine [From Tussi Pres-B] Allergy (Verified 11/05/17 16:54) brompheniramine maleate [From Tussi Pres-B] Allergy (Verified 11/05/17 16:54) chlorpheniramine polistirex [From Tussionex] Allergy (Verified 11/05/17 16:54) dextromethorphan Hbr [From Tussi Pres-B] Allergy (Verified 11/05/17 16:54) guaifenesin [From Tussi Pres-B] Allergy (Verified 11/05/17 16:54) homatropine methylbromide [From Tussigon] Allergy (Verified 11/05/17 16:54) hydrocodone bitartrate [From Tussigon] Allergy (Verified 11/05/17 16:54) hydrocodone polistirex [From Tussionex] Allergy (Verified 11/05/17 16:54) phenylephrine HCl [From Tussi Pres-B] Allergy (Verified 11/05/17 16:54) Sulfa (Sulfonamide Antibiotics) Allergy (Verified 11/05/17 16:54) sulfacetamide sodium [From Sulfamide] Allergy (Verified 11/05/17 16:54) zolpidem tartrate [From Ambien] Allergy (Verified 11/05/17 16:54) HOME MEDICATIONS: Home Medications Medication Instructions Recorded Pantoprazole Sodium [Protonix] 40 mg PO DAILY 02/27/17 Amiodarone HCl 0 mg PO DAILY 11/05/17 Apixaban [Eliquis] 2.5 mg PO BID 11/05/17 Clopidogrel Bisulfate [Plavix] 75 mg PO DAILY 11/05/17 Isosorbide Mononitrate [Imdur -] 120 mg PO DAILY 11/05/17 Levothyroxine Sodium [Synthroid] 0 mcg PO DAILY 11/05/17 Metoprolol Tartrate 25 mg PO BID 11/05/17 REVIEW OF SYSTEMS CONSTITUTIONAL: Absent: fever, chills, diaphoresis, generalized weakness, malaise, loss of appetite, weight change HEENT: Absent: rhinorrhea, nasal congestion, throat pain, throat swelling, difficulty swallowing, mouth swelling, ear pain, eye pain, visual changes CARDIOVASCULAR: Absent: chest pain, syncope, palpitations, irregular heart rate, lightheadedness , peripheral edema RESPIRATORY: Absent: cough, shortness of breath, dyspnea with exertion, orthopnea, wheezing, stridor, hemoptysis GASTROINTESTINAL: Absent: abdominal pain, abdominal distension, nausea, vomiting, diarrhea, constipation, melena, hematochezia GENITOURINARY: Absent: dysuria, frequency, urgency, hesitancy, hematuria, flank pain, genital pain MUSCULOSKELETAL: Absent: myalgia, arthralgia, joint swelling, back pain, neck pain SKIN: Absent: rash, itching, pallor HEMATOLOGIC/IMMUNOLOGIC: Absent: easy bleeding, easy bruising, lymphadenopathy, frequent infections ENDOCRINE: Absent: unexplained weight gain, unexplained weight loss, heat intolerance, cold intolerance NEUROLOGIC: Absent: headache, focal weakness or paresthesias, dizziness, unsteady gait, seizure, mental status changes, bladder or bowel incontinence PSYCHIATRIC: Absent: anxiety, depression, suicidal or homicidal ideation, hallucinations. PHYSICAL EXAMINATION Vital Signs - 24 hr 11/05/17 11/05/17 11/05/17 16:48 17:05 19:46 Temperature 97.8 F 98.7 F Pulse Rate 60 Pulse Rate [ 60 Left Radial] Respiratory 18 18 Rate Blood Pressure 150/74 Blood Pressure 140/79 [Right Arm] O2 Sat by Pulse 100 100 100 Oximetry (%) GENERAL: Patient is a middle aged man, sitting comfortably on the bed, Awake, alert, and fully oriented, in no acute distress. HEAD: Normal with no signs of trauma. EYES: EOM intact, no pallor or icterus. EARS, NOSE, THROAT: Poor dentition. Ears normal. Moist mucous membranes. NECK: Supple, no JVD. LUNGS: B/L Breath sounds equal, clear to auscultation bilaterally. No wheezes, and no crackles. No accessory muscle use. HEART: Regular rate and rhythm, normal S1 and S2 with systolic murmur. ABDOMEN: Very sensitive to touch, refused abd exam. MUSCULOSKELETAL: Normal range of motion at all joints. No bony deformities or tenderness. No CVA tenderness. UPPER EXTREMITIES: Fistula in the left arm, 2+ pulses, warm, well-perfused. No cyanosis. No clubbing. No peripheral edema. LOWER EXTREMITIES: 2+ pulses, warm, well-perfused. No calf tenderness. No peripheral edema. NEUROLOGICAL: No facial droop, Power 5/5 in all ext, Cranial nerves II-XII intact. Normal speech. Gait not observed. PSYCHIATRIC: Cooperative. Good eye contact. Appropriate mood and affect. SKIN: Warm, dry, normal turgor, no rashes or lesions noted, normal capillary refill. Laboratory Results - last 24 hr 11/05/17 11/05/17 11/05/17 17:40 17:40 17:40 WBC 8.2 RBC 3.08 L Hgb 8.6 L Hct 26.7 L MCV 86.6 MCH 27.9 MCHC 32.2 RDW 20.6 H Plt Count 139 MPV 6.1 L D Absolute Neuts (auto) 6.8 Neutrophils % 83.1 H Lymphocytes % 3.5 L D Monocytes % 8.9 Eosinophils % 3.6 Basophils % 0.9 Nucleated RBC % 0 Platelet Estimate Adequate Platelet Comment Polychromasia 1+ Poikilocytosis 1+ Anisocytosis 2+ Macrocytosis 1+ Ovalocytes 1+ PT with INR 16.80 H INR 1.49 H Sodium Cancelled Potassium Cancelled Chloride Cancelled Carbon Dioxide Cancelled Anion Gap Cancelled BUN Cancelled Creatinine Cancelled Creat Clearance w eGFR Cancelled Random Glucose Cancelled Calcium Cancelled Total Bilirubin Cancelled AST Cancelled ALT Cancelled Alkaline Phosphatase Cancelled Creatine Kinase Cancelled Troponin I Cancelled Total Protein Cancelled Albumin Cancelled Blood Type Antibody Screen Antibody Identification Antigen Identification 11/05/17 11/05/17 17:40 18:10 WBC RBC Hgb Hct MCV MCH MCHC RDW Plt Count MPV Absolute Neuts (auto) Neutrophils % Lymphocytes % Monocytes % Eosinophils % Basophils % Nucleated RBC % Platelet Estimate Platelet Comment Polychromasia Poikilocytosis Anisocytosis Macrocytosis Ovalocytes PT with INR INR Sodium 133 L Potassium 4.9 Chloride 98 Carbon Dioxide 23 Anion Gap 12 BUN 57 H Creatinine 6.9 H Creat Clearance w eGFR 8.23 Random Glucose 158 H D Calcium 8.0 L Total Bilirubin 0.7 AST 22 D ALT 31 D Alkaline Phosphatase 214 H Creatine Kinase 38 L Troponin I 0.26 H D Total Protein 7.5 Albumin 2.9 L Blood Type O POSITIVE Antibody Screen Positive H Antibody Identification Anti-c Antigen Identification c Antigen - NEGATIVE EKG: no evidence of acute ischemia. Abnormal access and diffuse T-wave abnormalities in noted which are unchanged from previous. ASSESSMENT/PLAN: The patient is a 57-year-old male with significant past medical history of HTN, Type II DM, CHF, Afib, CAD, ESRD on hemodialysis (T, TH, and Sat), L. arm fistula and severe ischemic heart disorder presented to the emergency department with the chief complaint of " Shortness of breath and chest pressure ". # Chest pain r/o ACS Has an extensive cardiac hx, has an AICD placed twice (last interrogated in July, after it got fired), c/o chest pressure Troponin 0.26. Elevation of troponin could also be due to ESRD Admit in Tele/Obs Spoke with Dr. Ling (university librarian) who is communication electronic technician today, recommended to continue his home medication, f/up troponins and EKG's, not a candidate for cath due to his cardiac hx and multiple stent placement. Continous cardiac monitoring Trend troponins and EKGs ECHO A1c, lipid profile # Normocytic anemia H/H8.6/26.7 likely due to anemia of chronic disease from ESRD # Hyponatremia Na-133, will encourage PO intake Repeat Na in the morning. # Hx Vtach Continue Amiodarone 100mg PO Daily # CAD s/p stents x 4 Continue Eliquis 2.5 mg PO BID, Plavix 75 mg, Isosorbide 120mg Daily # Diabetes Mellitus Not on any meds A1c pending # Hypothyroidism Continue Levothyroxine 88 mcg # GERD Continue Protonix 40mg PO daily # FEN Not on IV fluids, can tolerate PO Electrolytes WNL Diabetic/Renal diet # Prophylaxis For DVT: Already on Eliquis For GI: On Protonix # Code Status: Full Code # Dispo: Admitted in Tele/Obs. Duration of stay likely 1-2 days. Illness, Investigation and Plan of care explained to the patient. He verbalized understanding. Case discussed with Dr. Gonzalez. Visit type - Emergency Visit Emergency Visit: Yes ED Registration Date: 11/05/17 Care time: The patient presented to the Emergency Department on the above date and was hospitalized for further evaluation of their emergent condition. - New Patient This patient is new to me today: Yes Date on this admission: 11/05/17 - Critical Care Critical Care patient: No Hospitalist Screening - Colonoscopy Questionnaire Colonoscopy Questionnaire: Colonoscopy Questionnaire - Patient: 50 - 75 years old and never had a screening colonoscopy: Unknown History of colon or rectal polyps, or CA: Unknown History of IBD, Crohn's disease or UC: Unknown History of abdominal radiation therapy as a child: Unknown - Relative: 1 with colon or rectal CA, or polyps at age 60 or younger: Unknown Colon or rectal CA diagnosed at age 45 or younger: Unknown Multiple relatives with colon or rectal CA: Unknown - Outcome: Screening Result: Negative Screen
[2017-11-05] MEDS: METOPROLOL TARTRATE 25 MG TABLET (FP) PO SCH (22:53)
[2017-11-05] MEDS: APIXABAN 2.5 MG TABLET PO SCH (22:53)
[2017-11-06] MEDS: LEVOTHYROXINE NA 88 MCG TABLET (FP) PO SCH (06:09)
[2017-11-06 07:05] LABS: BASO % 0.6 % (0-2.0); EOS % 4.6 % (0-4.5); HEMOGLOBIN 7.8 GM/dL (11.7-16.9); LYMPH % 5.7 % (8-40); MCHC 32.5 g/dl (32.0-35.9); MEAN CELL VOLUME 86.1 fl (80-96); MEAN PLT VOLUME 6.3 fl (7.5-11.1); MONO % 11.5 % (3.8-10.2); NEUT % 77.6 % (42.8-82.8); PLATELET COUNT 134 K/MM3 (134-434); RBC 2.79 M/mm3 (4.00-5.60); RDW 20.8 % (11.9-15.9); WHITE BLOOD COUNT 6.6 K/mm3 (4.0-10.0)
[2017-11-06 07:33] LABS: ALBUMIN 2.5 g/dl (3.4-5.0); ANION GAP 14 (8-16); CALCIUM 7.9 mg/dL (8.5-10.1); CHLORIDE 99 mmol/L (98-107); CO2 22 mmol/L (21-32); SGOT/AST 19 U/L (15-37); SGPT/ALT 26 U/L (12-78); SODIUM 135 mmol/L (136-145)
[2017-11-06 07:40] LABS: ALK PHOS 177 U/L (45-117); BILIRUBIN,TOTAL 0.6 mg/dL (0.2-1.0); BLOOD UREA NITROGEN 68 mg/dL (7-18); CHOLESTEROL 82 mg/dL (50-200); GLUCOSE,RANDOM 133 mg/dL (74-106); HDL CHOLESTEROL 33 mg/dL (40-60); PHOSPHOROUS 6.3 mg/dL (2.5-4.9); TOT PROT 6.7 g/dl (6.4-8.2); TRIGLYCERIDES 72 mg/dL (35-160)
[2017-11-06] MEDS: APIXABAN 2.5 MG TABLET PO SCH ×2 (09:42→21:17)
[2017-11-06] MEDS: PANTOPRAZOLE 40 MG TABLET (FP) PO SCH (09:42)
[2017-11-06] MEDS: ISOSORBIDE MONONITRATE 60 MG TAB.SR.24H (FP) PO SCH (09:42)
[2017-11-06] MEDS: METOPROLOL TARTRATE 25 MG TABLET (FP) PO SCH ×2 (09:42→21:17)
[2017-11-06] MEDS: CLOPIDOGREL BISULFATE 75 MG TABLET (FP) PO SCH (09:42)
[2017-11-06] MEDS: AMIODARONE HCL 200 MG TABLET (FP) PO SCH (09:42)
[2017-11-06 10:07] LABS: CREATININE 7.7 mg/dL (0.7-1.3)
--- NOTE | 2017-11-06 12:08 | CON.CARD ---
Consult Consult Specialty:: cardiology Referred by:: Lisa Reason for Consultation:: Chest pain - History of Present Illness Chief Complaint: Chest pain History of Present Illness: The patient is a 57-year-old man, we've a history of diabetes, hypertension, hyperlipidemia, CVA or ischemic heart disease and severe coronary artery disease and multiple interventions, status post CABG status post ICD, end-stage renal disease on hemodialysis, atrial fibrillation, now admitted with recurrent chest pains while on dialysis. Symptoms are partially reproducible while pressing the chest. He looks quite comfortable. - History Source History Provided By: Patient Limitations to Obtaining History: No Limitations - Past Medical History Cardio/Vascular: Yes: AFIB, CAD, CHF, HTN, Hyperlipdemia, [place] Renal/: Yes: Renal Failure, Other (on dialysis) Heme/Onc: Yes: Anemia - Alcohol/Substance Use Hx Alcohol Use: No - Smoking History Smoking history: Never smoked Have you smoked in the past 12 months: No Home Medications - Allergies Allergies/Adverse Reactions: Allergies Allergy/AdvReac Type Severity Reaction Status Date / Time atorvastatin Allergy Verified 11/05/17 16:54 brompheniramine Allergy Verified 11/05/17 16:54 [From Tussi Pres-B] brompheniramine maleate Allergy Verified 11/05/17 16:54 [From Tussi Pres-B] chlorpheniramine polistirex Allergy Verified 11/05/17 16:54 [From Tussionex] dextromethorphan Hbr Allergy Verified 11/05/17 16:54 [From Tussi Pres-B] guaifenesin Allergy Verified 11/05/17 16:54 [From Tussi Pres-B] homatropine methylbromide Allergy Verified 11/05/17 16:54 [From Tussigon] hydrocodone bitartrate Allergy Verified 11/05/17 16:54 [From Tussigon] hydrocodone polistirex Allergy Verified 11/05/17 16:54 [From Tussionex] phenylephrine HCl Allergy Verified 11/05/17 16:54 [From Tussi Pres-B] Sulfa (Sulfonamide Allergy Verified 11/05/17 16:54 Antibiotics) sulfacetamide sodium Allergy Verified 11/05/17 16:54 [From Sulfamide] zolpidem tartrate Allergy Verified 11/05/17 16:54 [From Ambien] - Home Medications Home Medications: Ambulatory Orders Pantoprazole Sodium [Protonix] 40 mg PO DAILY 02/27/17 Amiodarone HCl 0 mg PO DAILY 11/05/17 Apixaban [Eliquis] 2.5 mg PO BID 11/05/17 Clopidogrel Bisulfate [Plavix] 75 mg PO DAILY 11/05/17 Isosorbide Mononitrate [Imdur -] 120 mg PO DAILY 11/05/17 Levothyroxine Sodium [Synthroid] 0 mcg PO DAILY 11/05/17 Metoprolol Tartrate 25 mg PO BID 11/05/17 Review of Systems - Review of Systems Constitutional: reports: No Symptoms Eyes: reports: No Symptoms HENT: reports: No Symptoms Neck: reports: No Symptoms Cardiovascular: reports: Chest Pain Respiratory: reports: No Symptoms Gastrointestinal: reports: No Symptoms Genitourinary: reports: No Symptoms Breasts: reports: No Symptoms Reported Musculoskeletal: reports: No Symptoms Integumentary: reports: No Symptoms Neurological: reports: No Symptoms Endocrine: reports: No Symptoms Hematology/Lymphatic: reports: No Symptoms Psychiatric: reports: No Symptoms Vital Signs: Vital Signs Temperature 98.3 F 11/06/17 08:05 Pulse Rate 62 11/06/17 08:05 Respiratory Rate 18 11/06/17 08:17 Blood Pressure 124/59 11/06/17 08:05 O2 Sat by Pulse Oximetry (%) 97 11/06/17 08:17 Constitutional: Yes: Well Nourished, No Distress, Calm Eyes: Yes: WNL, Conjunctiva Clear, EOM Intact HENT: Yes: WNL, Atraumatic, Normocephalic Neck: Yes: WNL, Supple, Trachea Midline Respiratory: Yes: WNL, Regular, CTA Bilaterally Gastrointestinal: Yes: WNL, Normal Bowel Sounds, Soft Renal/: Yes: WNL Cardiovascular: Yes: WNL, Regular Rate and Rhythm JVD: No Carotid Bruit: No PMI: Non-Displaced Heart Sounds: Yes: S1, S2 Murmur: Yes: Systolic Murmur, Grade 2 Musculoskeletal: Yes: WNL Extremities: Yes: WNL Edema: No Peripheral Pulses: 1+ Left Carotid, 1+ Right Carotid, 1+ Left Femoral, 1+ Right Femoral, 1+ Left Popliteal, 1+ Right Popliteal, 1+ Left Doralis Pedis, 1+ Right Dorsalis Pedis Integumentary: Yes: WNL Neurological: Yes: WNL, Alert, Oriented ...Motor Strength: WNL - Other Data Labs, Other Data: CBC, BMP 11/06/17 05:30 11/06/17 05:30 INR, PTT INR 1.49 (0.82-1.09) H 11/05/17 17:40 Troponin, BNP 11/05/17 11/05/17 11/05/17 02:45 02:45 17:40 Troponin I Cancelled 0.25 H D Cancelled 11/05/17 11/06/17 18:10 05:30 Troponin I 0.26 H 0.25 H Troponin, BNP 11/05/17 11/05/17 11/05/17 02:45 02:45 17:40 Troponin I Cancelled 0.25 H D Cancelled 11/05/17 11/06/17 18:10 05:30 Troponin I 0.26 H 0.25 H Assessment/Plan 57-year-old man with multiple medical problems including severe coronary artery disease, congestive heart failure, status post ICD implantation, status post CABG and multiple PCI's, now presenting with recurrent chest pains. Symptoms are partially reproducible. Troponins are chronically elevated. CKs are within normal limits. The patient is pacing the atrium on telemetry. No clinically important arrhythmias were noted. There were no defibrillator discharges. Would continue present care. Observe for further 24 hours on telemetry. No need for further cardiac workup nor testing at this point. The patient is stable.
[2017-11-06 12:27] LABS: HEMATOCRIT 25.4 % (35.4-49); MCH 27.5 pg (25.7-33.7); MCHC 31.4 g/dl (32.0-35.9); MEAN CELL VOLUME 87.4 fl (80-96); MEAN PLT VOLUME 6.3 fl (7.5-11.1); PLATELET COUNT 144 K/MM3 (134-434); RBC 2.91 M/mm3 (4.00-5.60); RDW 20.9 % (11.9-15.9); WHITE BLOOD COUNT 7.1 K/mm3 (4.0-10.0)
--- NOTE | 2017-11-06 15:54 | PN ---
Progress Note (short form) - Note Progress Note: Patient seen and examined. chest pain improved, reports some tenderness to touch , prior similar history, that reliever with NTG, then morphine. Objective: Vital Signs Period Temp Pulse Resp BP Sys/Robert Pulse Ox Last 24 Hr 97.8 F-98.7 F 60-62 18-19 114-150/50-79 97-100 Intake & Output 11/03/17 11/04/17 11/05/17 11/06/17 23:59 23:59 23:59 23:59 Intake Total 130 Balance 130 Weight 176 lb 176 lb 6 oz General: lying in bed in no acute distress Chest: CTAB, no rales or wheezing, no chest wall tenderness Abdomen:soft, distended (refuses further exam) "I dont have pain but it bothers me" Extremities: no edema Home Medications Medication Instructions Recorded Pantoprazole Sodium [Protonix] 40 mg PO DAILY 02/27/17 Amiodarone HCl 0 mg PO DAILY 11/05/17 Apixaban [Eliquis] 2.5 mg PO BID 11/05/17 Clopidogrel Bisulfate [Plavix] 75 mg PO DAILY 11/05/17 Isosorbide Mononitrate [Imdur -] 120 mg PO DAILY 11/05/17 Levothyroxine Sodium [Synthroid] 0 mcg PO DAILY 11/05/17 Metoprolol Tartrate 25 mg PO BID 11/05/17 Active Medications Amiodarone HCl (Cordarone -) 100 mg PO DAILY [facility] Last Admin: 11/06/17 09:42 Dose: 100 mg Apixaban (Eliquis -) 2.5 mg PO BID [facility] Last Admin: 11/06/17 09:42 Dose: 2.5 mg Clopidogrel Bisulfate (Plavix -) 75 mg PO DAILY [facility] Last Admin: 11/06/17 09:42 Dose: 75 mg Isosorbide Mononitrate (Imdur -) 120 mg PO DAILY [facility] Last Admin: 11/06/17 09:42 Dose: 120 mg Levothyroxine Sodium (Synthroid -) 88 mcg PO DAILY@0700 [facility] Last Admin: 11/06/17 06:09 Dose: 88 mcg Metoprolol Tartrate (Lopressor -) 25 mg PO BID [facility] Last Admin: 11/06/17 09:42 Dose: 25 mg Pantoprazole Sodium (Protonix -) 40 mg PO DAILY [facility] Last Admin: 11/06/17 09:42 Dose: 40 mg Laboratory Results - last 24 hr 11/05/17 11/05/17 11/05/17 02:45 02:45 02:45 WBC RBC Hgb Hct MCV MCH MCHC RDW Plt Count MPV Absolute Neuts (auto) Neutrophils % Lymphocytes % Monocytes % Eosinophils % Basophils % Nucleated RBC % Platelet Estimate Platelet Comment Polychromasia Poikilocytosis Anisocytosis Macrocytosis Ovalocytes PT with INR INR Sodium Potassium Chloride Carbon Dioxide Anion Gap BUN Creatinine Creat Clearance w eGFR POC Glucometer Random Glucose Hemoglobin A1c % 5.1 Calcium Phosphorus Magnesium Total Bilirubin AST ALT Alkaline Phosphatase Creatine Kinase 32 L Troponin I Cancelled 0.25 H D Total Protein Albumin Triglycerides Cholesterol Total LDL Cholesterol HDL Cholesterol Blood Type Antibody Screen Antibody Identification Antigen Identification 11/05/17 11/05/17 11/05/17 17:40 17:40 17:40 WBC 8.2 RBC 3.08 L Hgb 8.6 L Hct 26.7 L MCV 86.6 MCH 27.9 MCHC 32.2 RDW 20.6 H Plt Count 139 MPV 6.1 L D Absolute Neuts (auto) 6.8 Neutrophils % 83.1 H Lymphocytes % 3.5 L D Monocytes % 8.9 Eosinophils % 3.6 Basophils % 0.9 Nucleated RBC % 0 Platelet Estimate Adequate Platelet Comment Polychromasia 1+ Poikilocytosis 1+ Anisocytosis 2+ Macrocytosis 1+ Ovalocytes 1+ PT with INR 16.80 H INR 1.49 H Sodium Cancelled Potassium Cancelled Chloride Cancelled Carbon Dioxide Cancelled Anion Gap Cancelled BUN Cancelled Creatinine Cancelled Creat Clearance w eGFR Cancelled POC Glucometer Random Glucose Cancelled Hemoglobin A1c % Calcium Cancelled Phosphorus Magnesium Total Bilirubin Cancelled AST Cancelled ALT Cancelled Alkaline Phosphatase Cancelled Creatine Kinase Cancelled Troponin I Cancelled Total Protein Cancelled Albumin Cancelled Triglycerides Cholesterol Total LDL Cholesterol HDL Cholesterol Blood Type Antibody Screen Antibody Identification Antigen Identification 11/05/17 11/05/17 11/06/17 17:40 18:10 05:30 WBC 6.6 RBC 2.79 L Hgb 7.8 L Hct 24.0 L MCV 86.1 MCH 28.0 MCHC 32.5 RDW 20.8 H Plt Count 134 MPV 6.3 L Absolute Neuts (auto) 5.2 Neutrophils % 77.6 Lymphocytes % 5.7 L D Monocytes % 11.5 H Eosinophils % 4.6 H Basophils % 0.6 Nucleated RBC % 0 Platelet Estimate Platelet Comment Polychromasia Poikilocytosis Anisocytosis Macrocytosis Ovalocytes PT with INR INR Sodium 133 L Potassium 4.9 Chloride 98 Carbon Dioxide 23 Anion Gap 12 BUN 57 H Creatinine 6.9 H Creat Clearance w eGFR 8.23 POC Glucometer Random Glucose 158 H D Hemoglobin A1c % Calcium 8.0 L Phosphorus Magnesium Total Bilirubin 0.7 AST 22 D ALT 31 D Alkaline Phosphatase 214 H Creatine Kinase 38 L Troponin I 0.26 H Total Protein 7.5 Albumin 2.9 L Triglycerides Cholesterol Total LDL Cholesterol HDL Cholesterol Blood Type O POSITIVE Antibody Screen Positive H Antibody Identification Anti-c Antigen Identification c Antigen - NEGATIVE 11/06/17 11/06/17 11/06/17 05:30 05:30 06:08 WBC RBC Hgb Hct MCV MCH MCHC RDW Plt Count MPV Absolute Neuts (auto) Neutrophils % Lymphocytes % Monocytes % Eosinophils % Basophils % Nucleated RBC % Platelet Estimate Platelet Comment Polychromasia Poikilocytosis Anisocytosis Macrocytosis Ovalocytes PT with INR INR Sodium 135 L Potassium 5.0 Chloride 99 Carbon Dioxide 22 Anion Gap 14 BUN 68 H Creatinine 7.7 H* Creat Clearance w eGFR 7.25 POC Glucometer 149 Random Glucose 133 H Hemoglobin A1c % Calcium 7.9 L Phosphorus 6.3 H Magnesium 2.0 Total Bilirubin 0.6 AST 19 ALT 26 Alkaline Phosphatase 177 H D Creatine Kinase Troponin I 0.25 H Total Protein 6.7 Albumin 2.5 L Triglycerides 72 Cholesterol 82 Total LDL Cholesterol 42 HDL Cholesterol 33 L Blood Type Antibody Screen Antibody Identification Antigen Identification 11/06/17 12:15 WBC 7.1 RBC 2.91 L Hgb 8.0 L Hct 25.4 L MCV 87.4 MCH 27.5 MCHC 31.4 L RDW 20.9 H Plt Count 144 MPV 6.3 L Absolute Neuts (auto) Neutrophils % Lymphocytes % Monocytes % Eosinophils % Basophils % Nucleated RBC % Platelet Estimate Platelet Comment Polychromasia Poikilocytosis Anisocytosis Macrocytosis Ovalocytes PT with INR INR Sodium Potassium Chloride Carbon Dioxide Anion Gap BUN Creatinine Creat Clearance w eGFR POC Glucometer Random Glucose Hemoglobin A1c % Calcium Phosphorus Magnesium Total Bilirubin AST ALT Alkaline Phosphatase Creatine Kinase Troponin I Total Protein Albumin Triglycerides Cholesterol Total LDL Cholesterol HDL Cholesterol Blood Type Antibody Screen Antibody Identification Antigen Identification Assessment/Plan: 57 yom with PMHx of HTN, Type II DM, CHF, Afib, CAD, ESRD on hemodialysis (T, TH, and Sat), L. arm fistula and severe ischemic heart disorder comes with chest pain - Chest pain with some atypical features - Elevated Troponin -CAD -ESRD on HD -CHF -Afib -HTN -NIDDM Plan: telemetry with A pacing, no events. cardiology input appreciated, Monitor for 24 hours. Continue home meds. Monitor BMP/ levels. If non concerning and possible d/c tomorrow, outpatient renal follow up for HD. Dispo in 24 hours if no new events. Plan discussed with patient in detail, and all questions answered. Visit type - Emergency Visit Emergency Visit: No - New Patient This patient is new to me today: Yes Date on this admission: 11/06/17 - Critical Care Critical Care patient: No - Discharge Referral Referred to [facility] Med P.C.: No
[2017-11-07 06:26] VITALS: TEMP 98.1
[2017-11-07] MEDS: LEVOTHYROXINE NA 88 MCG TABLET (FP) PO SCH (06:43)
[2017-11-07 07:58] VITALS: BP 127/64; PULSE 60
[2017-11-07] MEDS: ISOSORBIDE MONONITRATE 60 MG TAB.SR.24H (FP) PO SCH (09:25)
[2017-11-07] MEDS: AMIODARONE HCL 200 MG TABLET (FP) PO SCH (09:25)
[2017-11-07] MEDS: PANTOPRAZOLE 40 MG TABLET (FP) PO SCH (09:25)
[2017-11-07] MEDS: CLOPIDOGREL BISULFATE 75 MG TABLET (FP) PO SCH (09:25)
[2017-11-07] MEDS: APIXABAN 2.5 MG TABLET PO SCH (09:25)
[2017-11-07] MEDS: METOPROLOL TARTRATE 25 MG TABLET (FP) PO SCH (09:26)
--- NOTE | 2017-11-07 10:12 | DS ---
Physical Exam: SUBJECTIVE: Patient seen and examined at bedside. No complaints at this time. Chest discomfort is gone. OBJECTIVE: Vital Signs Period Temp Pulse Resp BP Sys/Robert Pulse Ox Last 24 Hr 97.8 F-98.4 F 60-61 18-20 120-155/50-77 98-98 PHYSICAL EXAM Gen: sitting comfortably in bed HEENT: NCAT, EOMI Neck: Supple, no jvd, no bruits Heart: RRR, faint heart sounds. No MRG appreciated Lungs: no crackles/rales appreciated. LABS Laboratory Results - last 24 hr 11/06/17 11/07/17 12:15 05:47 WBC 7.1 RBC 2.91 L Hgb 8.0 L Hct 25.4 L MCV 87.4 MCH 27.5 MCHC 31.4 L RDW 20.9 H Plt Count 144 MPV 6.3 L POC Glucometer 125 HOSPITAL COURSE: Date of Admission:11/05/17 Date of Discharge: 11/07/17 Pt is a 57 M with PMHx of HTN, Type II DM, CHF, Afib, CAD, ESRD on hemodialysis (T, Tr, Sat), with L. arm fistula and severe ischemic heart disease who presented to ED with CP. Pt was admitted for cardiac workup. Pt was monitored on tele. EKG was unremarkable. Trop peak at 0.26. CXR showed presence of AICD and known congestion. Reportedly, pt visits [facility] frequently and always has slight troponin elevation due to his kidney disease. Pt's chronic medical conditions should be followed as an out pt. No medication changes. Pt stable for d/c back to his home health facility. Minutes to complete discharge: 30 Discharge Summary Reason For Visit: ACUTE CORNONARY SYNDROME ESRD Current Active Problems Acute coronary syndrome (Acute) End stage renal disease (Acute) Condition: Good - Instructions Diet, Activity, Other Instructions: You were in the hospital because of chest pain. You were seen by the motorcoach driver. You should follow up with your primary care doctor and your motorcoach driver within 1 week. No changes were made to your medications. If you have any more symptoms, return to the ED. Referrals: Simon Armijo MD [Staff Physician] - 1 Week Porsche Pringle MD [Primary Care Provider] - 1 Week Disposition: HOME - Home Medications Comprehensive Discharge Medication List: Ambulatory Orders Pantoprazole Sodium [Protonix] 40 mg PO DAILY 02/27/17 Amiodarone HCl 0 mg PO DAILY 11/05/17 Apixaban [Eliquis] 2.5 mg PO BID 11/05/17 Clopidogrel Bisulfate [Plavix] 75 mg PO DAILY 11/05/17 Isosorbide Mononitrate [Imdur -] 120 mg PO DAILY 11/05/17 Levothyroxine Sodium [Synthroid] 0 mcg PO DAILY 11/05/17 Metoprolol Tartrate 25 mg PO BID 11/05/17 This patient is new to me today: Yes Date on this admission: 11/07/17 Emergency Visit: No Critical Care patient: No - Discharge Referral Referred to [facility] Med P.C.: No
--- NOTE | 2017-11-07 10:24 | PN ---
Progress Note, Physician Chief Complaint: no further cp tele ppm - Current Medication List Current Medications: Active Medications Amiodarone HCl (Cordarone -) 100 mg PO DAILY [facility] Last Admin: 11/07/17 09:25 Dose: 100 mg Apixaban (Eliquis -) 2.5 mg PO BID [facility] Last Admin: 11/07/17 09:25 Dose: 2.5 mg Clopidogrel Bisulfate (Plavix -) 75 mg PO DAILY [facility] Last Admin: 11/07/17 09:25 Dose: 75 mg Isosorbide Mononitrate (Imdur -) 120 mg PO DAILY [facility] Last Admin: 11/07/17 09:25 Dose: 120 mg Levothyroxine Sodium (Synthroid -) 88 mcg PO DAILY@0700 [facility] Last Admin: 11/07/17 06:43 Dose: 88 mcg Metoprolol Tartrate (Lopressor -) 25 mg PO BID [facility] Last Admin: 11/07/17 09:26 Dose: 25 mg Pantoprazole Sodium (Protonix -) 40 mg PO DAILY [facility] Last Admin: 11/07/17 09:25 Dose: 40 mg - Objective Vital Signs: Vital Signs Temperature 98.1 F 11/07/17 07:51 Pulse Rate 60 11/07/17 07:51 Respiratory Rate 20 11/07/17 07:58 Blood Pressure 127/64 11/07/17 07:51 O2 Sat by Pulse Oximetry (%) 98 11/07/17 07:58 Constitutional: Yes: No Distress, Calm Eyes: Yes: Conjunctiva Clear, EOM Intact HENT: Yes: Normocephalic Neck: Yes: Trachea Midline Cardiovascular: Yes: Regular Rate and Rhythm Respiratory: Yes: CTA Bilaterally Gastrointestinal: Yes: Normal Bowel Sounds, Soft Extremities: Yes: WNL Edema: No Labs: CBC, BMP 11/06/17 12:15 11/06/17 05:30 INR, PTT INR 1.49 (0.82-1.09) H 11/05/17 17:40 Problem List - Problems (1) Acute coronary syndrome Assessment/Plan: He has severe CAD, not revascularizable easily, and chronically elevated tamara due to ESRD. Continue current medication. outpatient fu with Dr Post. Code(s): I24.9 - ACUTE ISCHEMIC HEART DISEASE, UNSPECIFIED
--- NOTE | 2017-11-07 12:53 | PN ---
Teaching Attending Note Name of Resident: Edilson Mendiola ATTENDING PHYSICIAN STATEMENT I saw and evaluated the patient. I reviewed the resident's note and discussed the case with the resident. I agree with the resident's findings and plan as documented with exceptions below. SUBJECTIVE: patient seen and examined, no chest pain, dyspnea, or new complaints. Feels well. Uneventful night. OBJECTIVE: Vital Signs Period Temp Pulse Resp BP Sys/Robert Pulse Ox Last 24 Hr 97.8 F-98.4 F 60-61 18-20 120-155/50-77 98-98 Intake & Output 11/04/17 11/05/17 11/06/17 11/07/17 23:59 23:59 23:59 23:59 Intake Total 750 260 Balance 750 260 Weight 176 lb 176 lb 6 oz General: sitting in bed in no acute distress Chest: CTAB, no rales or wheezing Abdomen:soft, NT Extremities: no edema Active Medications Amiodarone HCl (Cordarone -) 100 mg PO DAILY [facility] Last Admin: 11/07/17 09:25 Dose: 100 mg Apixaban (Eliquis -) 2.5 mg PO BID [facility] Last Admin: 11/07/17 09:25 Dose: 2.5 mg Clopidogrel Bisulfate (Plavix -) 75 mg PO DAILY [facility] Last Admin: 11/07/17 09:25 Dose: 75 mg Isosorbide Mononitrate (Imdur -) 120 mg PO DAILY [facility] Last Admin: 11/07/17 09:25 Dose: 120 mg Levothyroxine Sodium (Synthroid -) 88 mcg PO DAILY@0700 [facility] Last Admin: 11/07/17 06:43 Dose: 88 mcg Metoprolol Tartrate (Lopressor -) 25 mg PO BID [facility] Last Admin: 11/07/17 09:26 Dose: 25 mg Pantoprazole Sodium (Protonix -) 40 mg PO DAILY [facility] Last Admin: 11/07/17 09:25 Dose: 40 mg Laboratory Results - last 24 hr 11/07/17 05:47 POC Glucometer 125 ASSESSMENT AND PLAN: 57 yom with PMHx of HTN, Type II DM, CHF, Afib, CAD, ESRD on hemodialysis (T, TH, and Sat), L. arm fistula and severe ischemic heart disorder comes with chest pain - Chest pain with some atypical features - Elevated Troponin -CAD -ESRD on HD -CHF -Afib -HTN -NIDDM Plan: Telemetry with paced rhythm, no events. Cardiology input appreciated. Patient declined labs, and wants to continue his HD per regular outpatient. NO current concerns. D/c home today with outpatient cardiology follow up and HD outpatient. Plan discussed with patient in detail, all questions answered.
--- NOTE | 2017-11-07 17:27 | EKG ---
Test Reason : Blood Pressure : / mmHG Vent. Rate : 060 BPM Atrial Rate : 060 BPM P-R Int : 288 ms QRS Dur : 138 ms QT Int : 480 ms P-R-T Axes : 031 186 115 degrees QTc Int : 480 ms Atrial-paced rhythm with prolonged AV conduction PREMATURE VENTRICULAR COMPLEXES NON-SPECIFIC INTRA-VENTRICULAR CONDUCTION BLOCK ABNORMAL ECG WHEN COMPARED WITH ECG OF 05-NOV-2017 18:22, T WAVE VARIATION PVC IS SEEN Confirmed by REGINA MIMS, KAYLEY ([id number]) on 11/07/2017 5:27:08 PM Referred By: Niranjan HARRELL Confirmed By:KAYLEY TAPIA MD
--- NOTE | 2017-11-07 21:22 | EKG ---
Test Reason : Blood Pressure : / mmHG Vent. Rate : 060 BPM Atrial Rate : 060 BPM P-R Int : 276 ms QRS Dur : 138 ms QT Int : 488 ms P-R-T Axes : 045 -77 175 degrees QTc Int : 488 ms Atrial-paced rhythm with prolonged AV conduction LEFT AXIS DEVIATION NON-SPECIFIC INTRA-VENTRICULAR CONDUCTION BLOCK ANTEROSEPTAL INFARCT INFERIOR ST-T ABNORMALITY ABNORMAL ECG WHEN COMPARED WITH ECG OF 13-JUN-2017 17:10, VENT. RATE HAS DECREASED BY 30 BPM Confirmed by KAYLEY TAPIA MD ([id number]) on 11/07/2017 9:22:26 PM Referred By: Confirmed By:KAYLEY TAPIA MD
--- NOTE | 2017-11-07 21:49 | EKG ---
Test Reason : Blood Pressure : / mmHG Vent. Rate : 060 BPM Atrial Rate : 060 BPM P-R Int : 292 ms QRS Dur : 118 ms QT Int : 456 ms P-R-T Axes : 044 070 -43 degrees QTc Int : 456 ms Atrial-paced rhythm with prolonged AV conduction INDETERMINATE AXIS NON-SPECIFIC INTRA-VENTRICULAR CONDUCTION BLOCK ANTEROSEPTAL INFARCT (CITED ON OR BEFORE 23-AUG-2004) ABNORMAL ECG WHEN COMPARED WITH ECG OF 13-JUN-2017 17:10, VENT. RATE HAS DECREASED BY 30 BPM Confirmed by KAYLEY TAPIA MD ([id number]) on 11/07/2017 9:48:45 PM Referred By: Confirmed By:KAYLEY TAPIA MD
== END 2017-11-07 13:03 | disposition home or self-care (01) ==
LOC: JER 16:41 → JERBED 20:24 → J4W 11-06 02:23
PROVIDERS: ADMIT Internal Medicine; ATTEND Hospitalist
DX: I24.9 Acute ischemic heart disease, unspecified (principal); E11.22 Type 2 diabetes mellitus with diabetic chronic kidney disease; I12.0 Hypertensive chronic kidney disease with stage 5 chronic kidney disease or end stage renal disease; N18.6 End stage renal disease; Z99.2 Dependence on renal dialysis; I50.9 Heart failure, unspecified; I48.91 Unspecified atrial fibrillation; I25.10 Atherosclerotic heart disease of native coronary artery without angina pectoris; E03.9 Hypothyroidism, unspecified; R77.0 Abnormality of albumin; D64.9 Anemia, unspecified; R18.8 Other ascites; E87.1 Hypo-osmolality and hyponatremia; K21.9 Gastro-esophageal reflux disease without esophagitis; R77.8 Other specified abnormalities of plasma proteins
CPT/HCPCS: 36415; 71045-TC-FY; 80053; 80061; 82550; 82962; 83036; 83721; 83735; 84100; 84484; 85025; 85027; 85610; 86850; 86870; 86900; 86901; 86902; 93005; 93010; 99285-25; G0378